=== PATIENT | female | born 1940 | race Caucasian/White ===

== ENCOUNTER 2021-08-17 15:23 | Emergency (ER) | payer MEDICARE, OTHER, SELFPAY ==
--- NOTE | ~2021-08-17 | CT_ITS ---
EXAMINATION: CT HEAD WITHOUT CONTRAST CLINICAL INFORMATION: Dizziness, headache. COMPARISON: None. TECHNIQUE: Contiguous axial imaging was performed from the skull base to vertex without intravenous administration of contrast. This CT examination was performed using dose optimization techniques as appropriate, variously including the following: *Automated exposure control *Adjustment of mA and/or kV according to patient size (this includes techniques or standardized protocols for targeted exams where dose is matched to indication/reason for exam; i.e. extremities or head) *Use of iterative reconstruction technique DLP: 722 mGy-cm FINDINGS: There is no evidence of acute intracranial hemorrhage or edematous territorial infarction. A few foci of hypoattenuation in the periventricular and deep white matter are consistent with mild microangiopathy. James-white matter differentiation is preserved. Proportional prominence of the ventricles and sulcal spaces. No evidence for obstructive hydrocephalus. No abnormal mass effect or midline shift. No extra-axial fluid collections. No acute soft tissue or osseous abnormalities. The mastoid air cells and paranasal sinuses are clear. CT/CT head/brain wo con IMPRESSION: No evidence of acute intracranial hemorrhage or edematous territorial infarction. 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
[2021-08-17 15:38] VITALS: BP 144/90; BP 176/88; PULSE 90; PULSE 93; RESP 18; TEMP 36.8; O2SAT 94; O2SAT 97; BMI 33.0
--- NOTE | 2021-08-17 15:45 | ED_ITS ---
HPI - Dizziness General Chief Complaint: Dizziness Stated Complaint: dizzy/vomiting Time Seen by Provider: 08/17/21 15:45 Source: patient and EMS Mode of arrival: EMS Limitations: no limitations History of Present Illness HPI Narrative: This is an 80-year-old female past medical history significant for arthritis, hypertension and vertigo presenting to the emergency department with complaints of nausea, vomiting and dizziness since this morning. Patient me that she has a remote history of vertigo and seems to feel the same. She tells me that she feels as though the room is spinning around her. She denies headaches, vision changes, chest pain, shortness of breath, chest pain, shortness of breath, abdominal pain. Denies head trauma. MD elicited complaint: dizziness Pertinent past history: other (vertigo) Onset (ago): hour(s) (6) Timing: sudden onset Severity: similar to previous episodes Description: sense of movement and room spinning History of similar symptoms: Yes Exacerbating factors: nothing Relieving factors: nothing Associated symptoms: nausea and vomiting Related Data Previous Rx's Medication Instructions Recorded cefuroxime axetil 250 mg tablet 250 mg PO BID 7 Days #14 tab 08/17/21 meclizine 25 mg tablet 25 mg PO DAILY PRN #14 tab 08/17/21 ondansetron 4 mg disintegrating 4 mg PO Q8-12H PRN #10 tab 08/17/21 tablet Allergies Allergy/AdvReac Type Severity Reaction Status Date / Time Unable to Assess Allergy Unverified 08/17/21 15:54 Review of Systems Review of Systems: Constitutional : No Weight loss, No Fever, No Chills, No Fatigue, No Malaise ENT/Mouth : No sore throat, No Rhinorrhea Eyes: No Eye Pain, No Swelling, No Redness Cardiovascular : No Chest Pain, No SOB, No Dyspnea on Exertion, No Orthopnea, No Edema, No Palpitations Respiratory : No Cough, No Sputum, No Wheezing Gastrointestinal : + Nausea, + Vomiting, No Diarrhea, No Constipation, No abdominal Pain, No Hematochezia, No Melena Genitourinary : No Dysuria, No Urinary Frequency, No Hematuria, Musculoskeletal : No joint pain, No Myalgias, No Joint Swelling Skin : No Skin Lesions, No rash Neuro : No Weakness, No Numbness, + Dizziness, No Headache Psych : No Anxiety/Panic, No Depression All other systems reviewed and are negative Yes all other systems are reviewed and are negative [facility] Past Medical History Attestation statement: The following information was validated with the patient. Source: old records reviewed and nursing notes reviewed Medical History (Updated 08/17/21 @ 19:06 by CHRISTEN Pryor) Arthritis HTN (hypertension) Pinched nerve Thoracic aneurysm without mention of rupture Vertigo Social History Social History Advance Directives: No Advance Directives Information Provided: No Physical Exam Vital Signs: Vital Signs: Last Vital Signs Temp 98.7 F 08/17/21 18:27 Pulse 92 08/17/21 18:27 Resp 16 08/17/21 18:27 BP 152/77 H 08/17/21 18:27 Pulse Ox 97 08/17/21 18:27 BMI result Body Mass Index 33.0 Vital signs stable. Appearance: Alert.? Oriented X3.? No acute distress.? Head: Normocephalic, atraumatic, no step-offs or deformities Eyes: Pupils equal, round and reactive to light.? ENT: Pharynx normal.? Neck: Normal inspection.? Neck supple.? CVS: Normal heart rate and rhythm.? Pulses normal.? Respiratory: No respiratory distress.? Breath sounds normal.? Abdomen: Soft and nontender.? Skin: Skin warm and dry.? Normal skin color.? Normal skin turgor.? Extremities: No lower extremity edema.? No calf ttp. 5/5 strength to bilateral upper and lower extremities Back: No midline tenderness, no C-spine tenderness, full range of motion, no CVA tenderness bilaterally Neuro: Oriented X 3.? No motor deficit.? No sensory deficit. Normal [id number], rivs-xq-udnl, hand home improvement installer. Normal tandem gait Course Reevaluation(s) Reevaluation #1: Patient's CBC within normal limits. Chemistry significant for an elevated potassium of 5.5, will give Lokelma 10gm to lower potassium. I did the Billie maneuver on this patient, and noted horizontal nystagmus. Patient reports improvement after maneuver. Time: 16:53 Reevaluation #2: Patient reports significant improvement after fluids, and Billie maneuver. No longer nauseaous. Patient ambulated to the bathroom with 1 assist, she reports she is no longer dizzy with ambulation, she has a steady gait. At home she ambulates with a walker. No vision changes, dizziness or nausea at this time. Urine pending. History and physical exam not consistent with posterior stroke. Time: 18:36 Reevaluation #3: Patient noted to have urinary tract infection. Will treat with Ceftin 250 mg p.o. b.i.d. for 7 days. This time I feel comfortable discharge home as this is likely vertigo. Patient reports significant improvement. She will be going home with her daughter franki. I have advised her to return with new or worsening symptoms. I have outlined these on her discharge. Time: 19:06 MDM - Dizziness MDM Narrative Medical decision making narrative: 1551 80 yo f pmhx htn, arthritis, vertigo presents to ED w/ n/v and dizziness described as vertigo since this am. Physical examination benign. Normal esdvty-ek-umse, vsip-qa-huya, normal tandem gait, neuro exam nonfocal. Unlikely that this is cerebellar infarcts or stroke. Plan at this time is to administer meclizine, fluids obtain basic lab work, EKG and orthostatic vital signs. Medical Records Attestation: I reviewed the patient's medical records. Lab Data Attestation: I reviewed the patient's lab results. Result diagrams: 08/17/21 15:48 08/17/21 15:48 Labs: Lab Results 08/17/21 08/17/21 08/17/21 Range/Units 15:48 15:48 18:39 WBC 8.0 (4.8-10.8) X10*3/uL RBC 4.26 (4.20-5.50) X10*6/uL Hgb 12.1 (12.0-16.0) g/dl Hct 36.1 L (37.0-47.0) % MCV 84.7 (80.0-98.0) fL MCH 28.4 (27.0-33.0) pg MCHC 33.5 (31.0-35.0) g/dl RDW 13.4 (11.0-16.0) % Plt Count 316 (160-400) X10*3/uL MPV 9.4 (9.4-12.3) fL Absolute Nucleated RBC 0.000 (0.0-0.012) X10*3/uL Nucleated RBC % (auto) 0.0 (0.0-0.2) /100WBC Sodium 138 (135-145) mmol/L Potassium 5.5 H (3.3-5.1) mmol/L Chloride 105 (96-108) mmol/L Carbon Dioxide 23 (22-29) mmol/L Anion Gap 16 (12-20) BUN 17 H (9-16) mg/dL Creatinine 0.70 (0.5-1.4) mg/dL Estim Creat Clear Calc 71.1 Estimated GFR > 60 Random Glucose 121 H (60-115) mg/dL Calcium 10.3 H (8.4-10.2) mg/dL Urine Color YELLOW Urine Appearance HAZY Urine pH 5.5 (5.0-8.0) Ur Specific [place] >= 1.030 H (1.005-1.025) Urine Protein TRACE (NEG-TRACE) MG/DL Urine Glucose (UA) NEG (NEG) MG/DL Urine Ketones NEG (NEG) MG/DL Urine Blood TRACE (NEG) Urine Nitrite POS H (NEG) Ur Leukocyte Esterase 1+ H (NEG) Urine RBC 1-4 (0) /HPF Urine WBC 76-150 H (0-4) /HPF Ur Squamous Epith Cells 1+ /LPF Urine Bacteria 3+ /LPF Imaging Data CT scan - head: Attestation: I personally reviewed and interpreted this imaging study as follows: Radiologist's impression: CT/CT head/brain wo con IMPRESSION: No evidence of acute intracranial hemorrhage or edematous territorial infarction. 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 ? ECG Data Attestation: I personally reviewed and interpreted this ECG as follows: ECG interpretation date: 08/17/21 ECG interpretation time: 17:23 Prior ECG tracings: not available for review Interpretation: Ventricular rate of 85, ME normal, QRS normal, QT/QTC normal. EKG shows normal sinus rhythm. No ST elevations or inversions concerning for ischemia. No previous to compare with. Critical Care Time Critical Care Time Critical Care Time: No Discharge Plan Discharge Clinical Impression: Benign paroxysmal positional vertigo, Nausea & vomiting, Urinary tract infection Patient Disposition: Home, Self-Care Instructions: Benign Paroxysmal Positional Vertigo (ED) Additional Instructions: Today your potassium was noted to be 5.5 I gave you 10 gm of Lokelma a medication to help lower potassium. Please follow up with your PCP in 2-3 days to recheck potassium. I gave you a handout on exercises to help with vertigo. You can try these at if you have assistance. Please change positions slowly as rapid movements can worsen vertigo. I will send you home with Zofran, this medication will dissolve underneath her tongue please take this as needed for nausea and vomiting every 8-12 hours. I have also sent you home with meclizine a medicine that helps with dizziness, only take if dizzy. You received both of these medications in the emergency department today. Take your medications as prescribed. If you were prescribed antibiotics today, it is important that you take your medication to their entirety, do not skip any doses, do not finish them early. Follow-up with your primary care provider this week. Return to the emergency department with new or worsening symptoms. Such as nausea, vomiting, chest pain, shortness of breath, dizziness, headache, vision changes, weakness or lethargy. In case of emergency call 911 Prescriptions: New ondansetron 4 mg tablet,disintegrating 4 mg PO Q8-12H PRN (Reason: nausea and vomiting) Qty: 10 RF: 0 meclizine 25 mg tablet 25 mg PO DAILY PRN (Reason: dizziness) Qty: 14 RF: 0 cefuroxime axetil 250 mg tablet 250 mg PO BID 7 Days Qty: 14 RF: 0 Referrals: Physician,Unknown J [Primary Care Provider] - 2 days (Please have your primary care provider recheck your potassium level)
[2021-08-17 15:50] VITALS: BP 176/88; PULSE 96; RESP 16; TEMP 36.6; O2SAT 93
[2021-08-17 15:53] LABS: Hematocrit 36.1 % (37.0-47.0); Hemoglobin 12.1 g/dl (12.0-16.0); Mean Corpuscular HGB Conc 33.5 g/dl (31.0-35.0); Mean Corpuscular Hemoglobin 28.4 pg (27.0-33.0); Mean Corpuscular Volume 84.7 fL (80.0-98.0); Mean Platelet Volume 9.4 fL (9.4-12.3); Platelet Count 316 X10*3/uL (160-400); Red Blood Count 4.26 X10*6/uL (4.20-5.50); Red Cell Distribution Width 13.4 % (11.0-16.0)
[2021-08-17] MEDS: ondansetron HCL 4 MG/2 ML VIAL IVPUSH (15:56)
[2021-08-17 16:08] LABS: Anion Gap 16 (12-20); Blood Urea Nitrogen 17 mg/dL (9-16); Calcium 10.3 mg/dL (8.4-10.2); Carbon Dioxide 23 mmol/L (22-29); Chloride 105 mmol/L (96-108); Creatinine Clr Calc Pharmacy 71.1; Estimated Glomerular Filt Rate > 60; Glucose Random 121 mg/dL (60-115); Potassium 5.5 mmol/L (3.3-5.1); Sodium 138 mmol/L (135-145)
[2021-08-17] MEDS: Meclizine HCl 25 MG TABLET PO (16:30)
--- NOTE | 2021-08-17 16:35 | ECG_ITS ---
Test Reason : dizzy Blood Pressure : / mmHG Vent. Rate : 085 BPM Atrial Rate : 085 BPM P-R Int : 156 ms QRS Dur : 080 ms QT Int : 340 ms P-R-T Axes : 068 -25 -14 degrees QTc Int : 404 ms Normal sinus rhythm ST & T wave abnormality, consider anterior ischemia Abnormal ECG No previous ECGs available Referred By: Sophia Lange Electronically Signed By:BENI DURAN MD
[2021-08-17] MEDS: Sodium Zirconium Cyclosilicate 10 GM POWD.PACK PO (17:25)
[2021-08-17 18:27] VITALS: BP 152/77; PULSE 92; RESP 16; TEMP 37.1; O2SAT 97
[2021-08-17 18:49] LABS: Appearance Urine HAZY; Color Urine YELLOW; Glucose Urine UA NEG (NEG); Leukocyte Esterase Urine 1+ (NEG); Nitrite Urine POS (NEG); PH 5.5 (5.0-8.0); Specific Gravity - Urine >= 1.030 (1.005-1.025); UACC Culture Trigger YES; Urine Blood TRACE (NEG); Urine Ketones NEG (NEG); Urine Protein TRACE MG/DL (NEG-TRACE)
[2021-08-17 18:56] LABS: Bacteria Urine 3+ /LPF; Squamous Epithelial Cell Urine 1+ /LPF
[2021-08-17 18:57] LABS: UACC CULT YES
[2021-08-17 19:26] LABS: COVID-19 Test Negative (Negative); IDNOW Serial# 9DD0AD1C
--- NOTE | 2021-08-17 19:41 | PC.NURSE ---
Discharged at this time. Prior to DC we reviewed proper uses and indications for Zofran, meclizine and Cefizime.She verbalized an understanding. I assisted the pt to get dressed and assisted her into a wheelchair to her daughter who was in waiting room to transport her home.
== END 2021-08-17 19:42 | disposition home or self-care (01) ==
PROVIDERS: Physician Assistant; Emergency Provider Emergency Medicine
DX: H81.13 Benign paroxysmal vertigo, bilateral (principal); N39.0 Urinary tract infection, site not specified; Z20.822 Contact with and (suspected) exposure to COVID-19; Z79.899 Other long term (current) drug therapy
CPT/HCPCS: 36415; 70450; 80048; 81001; 85027; 87086; 87088; 87186; 87635; 93005; 96374; 99283; 99284; J2405

== ENCOUNTER → 2023-01-14 10:57 | Outpatient (BNVA) | payer MEDICARE, OTHER, SELFPAY | PROVIDERS: PCP Internal Medicine; Visit Provider Orthopaedic Surgery | DX: M25.562 Pain in left knee (principal); G58.9 Mononeuropathy, unspecified; Z96.652 Presence of left artificial knee joint | CPT/HCPCS: 99212 ==

== ENCOUNTER 2023-04-15 11:40 | Outpatient (REF) | payer MEDICARE, OTHER, SELFPAY ==
--- NOTE | ~2023-04-15 | XR_ITS ---
EXAMINATION: XR KNEE, LEFT CLINICAL INFORMATION: Left knee pain. COMPARISON: None available. TECHNIQUE: AP, lateral, and sunrise views of the left knee. FINDINGS: Total left knee arthroplasty. No hardware fracture. No perihardware lucency to suggest loosening or infection. No dislocation. No osseous fracture. No concerning lytic or blastic osseous lesion. Trace joint effusion. Atherosclerotic calcifications. XR/XR knee LT 3V IMPRESSION: 1. Total left knee arthroplasty without evidence of complication. 2. Trace joint effusion.
== END 2023-04-15 11:41 | disposition home or self-care (01) ==
LOC: HO.HOSX 11:40
PROVIDERS: Visit Provider Orthopaedic Surgery
DX: M25.562 Pain in left knee (principal); Z96.652 Presence of left artificial knee joint; Z79.899 Other long term (current) drug therapy
CPT/HCPCS: 73562; 99212

== ENCOUNTER 2023-04-15 13:17 | Outpatient (AMB) | payer MEDICARE, OTHER, SELFPAY ==
--- NOTE | 2023-04-15 13:37 | MHC.OFFVIS ---
Intake Intake Visit Reasons: OV-S/P left knee replacement-F/U Intake Note: Pt presents to the office today for s/p left knee replacement follow up. Pt states her knee is doing well. Pt states the pain in her knee is almost gone. Pt states she does have swelling in her left leg most of the time. Pt states when she elevates her legs the swelling tends to go down. The patient does take gabapentin and Tylenol as needed for her discomfort. She has taken Celebrex but states that she may have had a reaction to it. Accompanied by: Daughter Allergies nitrofurantoin Allergy (Mild, Verified 04/15/23 13:37) itchy sulfamethoxazole [From Bactrim] Allergy (Mild, Verified 04/15/23 13:37) itchy tramadol [From Ultram] Allergy (Mild, Verified 04/15/23 13:37) itchy trimethoprim [From Bactrim] Allergy (Mild, Verified 04/15/23 13:37) itchy Medication List - Last Reconciled 04/15/23 by Apollo Lucio MD atenolol 100 mg PO QAM bimatoprost 0.01% (Lumigan) 1 drp ophthalmic (eye) QPM brimonidine-timolol 0.2-0.5 % (Combigan) 1 drp ophthalmic (eye) BID gabapentin 300 mg PO DAILY losartan 50 mg PO DAILY ondansetron 4 mg PO Q8-12H PRN PFSH Medical History Thoracic aneurysm without mention of rupture Pinched nerve Arthritis HTN (hypertension) Vertigo Surgical History (Updated 04/15/23 @ 13:43 by Tonya Velasco MA) 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 Family History (Updated 04/15/23 @ 13:42 by Tonya Velasco MA) Mother Diabetes Hypertension Father Leukemia Son Prostate cancer Social History (Updated 04/15/23 @ 13:41 by Tonya Velasco MA) Household Members: None Housing: Condominium Alcohol intake: never Patient Tobacco Use Status: Never used Tobacco Current occupational status: retired Physical Exam Const Other: Well-nourished well-developed very friendly female awake alert and oriented x3 in no acute distress Extrem Other: Bilateral lower extremity examination shows good capillary refill, no skin lesions noted, normal sensation light touch Left knee examination shows that the surgical incision is well healed with no erythema, full extension and flexion to 120 degrees, her patella tracks well Results Reviewed Results Reviewed: X-rays of the patient's left knee taken today show a total knee arthroplasty in good position with no signs of loosening, no acute bony abnormalities Assessment & Plan Assessment & Plan (1) Left knee pain: Code(s): M25.562 - Pain in left knee Plan Ms. Machado continues to do well after undergoing left total knee replacement surgery. She will continue with her home exercise program. She does know to take antibiotics before any dental work. She does have intermittent discomfort and swelling. I did give her a prescription for diclofenac tablets. She will check with her eye doctor prior to starting the medicine to make sure that it is not contraindicated. She will contact me prior to her annual follow-up appointment should any questions or concerns arise. Feel free to call me at any time should questions regarding her orthopedic management arise. I spent 22 minutes in reviewing the patient's records and imaging studies, seeing the patient and documenting in the medical record. Orders: Orders XR knee LT 3V Today M25.562 - Pain in left knee Medications: New diclofenac sodium ER 100 mg PO DAILY PRN 30 tabs 2RF pain Coding Level of Care Code Est Pt Level 2 (70457) Diagnoses Left knee pain M25.562
== END 2023-04-15 14:10 | disposition home or self-care (01) ==
PROVIDERS: PCP Internal Medicine; Visit Provider Orthopaedic Surgery
DX: M25.562 Pain in left knee (principal)
CPT/HCPCS: 99212

== ENCOUNTER 2025-02-14 09:47 | Outpatient (AMB) | payer MEDICARE, OTHER, SELFPAY ==
--- OUTSIDE RECORDS SUMMARY | 2025-02-13 07:59 | XMS_ITS | Encounter Summary ---
Author Organization [facility] [place] [address] Care Team Providers Care Monorail Helper Name Role Phone Arian Waldron MD Primary Care Provider [phone] Encounter Details Date Type Department Care Team (Latest Contact Info) Description 02/13/2025 7:59 AM EDT - 02/13/2025 11:59 PM EDT Hospital Encounter [facility] Ortho Xray [address] [place] [phone] Arrived Discharge Disposition: Home or Self Care [...] Description 03/30/2025 2:00 PM EDT Office Visit [facility] Cardiology [address] [place] [address] Ramon Dixon MD [address] [place] [address] [address] [place] [address] documented as of this encounter Procedures Procedure [...] documented as of this encounter Care Teams Monorail Helper Relationship Specialty Start Date End Date Arian Waldron MD [address] [place] [address] PCP - General Transmission System Operator 02/06/20 documented as of this encounter
--- NOTE | 2025-02-14 09:59 | A.OFFVIS_ITS ---
Vital Signs 02/14/25 10:05 Height 5 ft 3 in Weight 195 lb BMI 34.5 Intake Visit Reasons: New prob RT knee pain Intake Note: Marie is an 84 year old female who presents today with complaints of progressively worsening right knee pain. The patient did undergo left total knee replacement surgery in May of 2022. She reports minimal discomfort in her left knee. She describes her right knee pain as sharp and severe in nature. The patient has difficulty walking because of her pain and symptoms of instability. She is not able to have cortisone injections because of her glaucoma. She wishes to hold off on right total knee replacement surgery for now. She has failed the last 3 months of conservative treatment which has included Tylenol, anti-inflammatory medicines and physical therapy exercises. Allergies nitrofurantoin Allergy (Mild, Verified 02/14/25 10:04) itchy sulfamethoxazole (From Bactrim) Allergy (Mild, Verified 02/14/25 10:04) itchy tramadol (From Ultram) Allergy (Mild, Verified 02/14/25 10:04) itchy trimethoprim (From Bactrim) Allergy (Mild, Verified 02/14/25 10:04) itchy Medication List - Last Reviewed 02/14/25 by Angi Pearce atenolol 100 mg PO QAM bimatoprost 0.01% (Lumigan) 1 drp ophthalmic (eye) QPM brimonidine-timolol 0.2-0.5 % (Combigan) 1 drp ophthalmic (eye) BID diclofenac sodium ER 100 mg PO DAILY PRN dorzolamide 2% 1 drp ophthalmic (eye) TID gabapentin 400 mg PO DAILY lidocaine 4% (Lido Porfirio) 1 patch topical QID PRN lidocaine HCl 4% (Aspercreme (lidocaine HCl)) 1 appl topical QID PRN losartan 50 mg PO DAILY ondansetron 4 mg PO Q8-12H PRN PFSH Medical History (Updated 02/14/25 @ 10:25 by Apollo Lucio MD) Thoracic aneurysm without mention of rupture Pinched nerve Arthritis HTN (hypertension) Vertigo Surgical History (Updated 04/15/23 @ 13:43 by Tonya Velasco CMA) 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 Family History (Updated 04/15/23 @ 13:42 by Tonya Velasco CMA) Mother Diabetes Hypertension Father Leukemia Son Prostate cancer Social History (Updated 04/15/23 @ 13:41 by Tonya Velasco [facility]) Household Members: None Housing: Condominium Alcohol intake: never Patient Tobacco Use Status: Never used Tobacco Current occupational status: retired Physical Exam Vital Signs: BMI result Body Mass Index 34.5 Const Other: Well-nourished well-developed very friendly female awake alert and oriented x3 in no acute distress Extrem Other: Right knee examination shows a moderate effusion, palpable crepitus with range of motion, pain with range of motion, range of motion from -3 degrees to 100 degrees, her patella tracks well Results Reviewed Results Reviewed: X-rays of the patient's right knee which she brings with her on a disc show severe joint space narrowing, subchondral sclerosis, no acute bony abnormalities Assessment & Plan Assessment & Plan (1) Osteoarthritis of right knee: Code(s): M17.11 - Unilateral primary osteoarthritis, right knee Category: Medical Plan Ms. Machado presents with right knee pain due to osteoarthritis. I had a lengthy discussion with the patient regarding the treatment options. She wishes to hold off on surgery if at all possible. I agree with this plan. She is not able to have cortisone injections because of her glaucoma. Thus, I will see if the patient's insurance company will cover a viscosupplementation injection such as Durolane. I will see her back once the injection is available. Feel free to call me at any time should questions regarding her orthopedic management arise. I spent 22 minutes in reviewing the patient's records and imaging studies, seeing the patient and documenting in the medical record. Orders: Orders XR knee RT 3V Today M25.561 - Pain in right knee Coding Level of Care Code Est Pt Level 3 (48373) Complex EM visit Add On G2211 Diagnoses Osteoarthritis of right knee M17.11
[2025-02-14 10:05] VITALS: BMI 34.5
--- OUTSIDE RECORDS SUMMARY | 2025-02-14 10:24 | XMS_ITS | Data Portability ---
Author Organization [facility] Pain Managem ent, PAIN OFFICE Address [address] [facility] [address] [place] [address] Care Team Providers Care Biology Intern Name Role Phone ZENOBIA RAMSAY Primary Care Provider [phone] Assessment Encounter Date Assessment Date Assessment LastModified by Organization Details LastModified Time 03/12/2020 03/12/2020 Marie Machado is a 79 year old woman with low back pain .MRI Lumbar Spine shows severe changes of multilevel lumbar spondylosis, resulting in high-grade spinal canal and foramina narrowing, worst at L2-L3 and L3-L4 levels progressed since the prior exam of 2018. Stable grade 1 degenerative anterolisthesis of L4 on L5, resulting in mild to moderate narrowing of the recesses and foramina similar to the previous exam. 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 Degenerative levoscoliosis and other changes of lumbar spondylosis . She is here for a trial of Lumbar right facet steroid injections under fluoroscopic guidance . The risks and benefits of the procedure were discussed in detail. She wishes to proceed. She will follow up in four weeks . [email or web address] Not available 03/13/2020 09:58:36 04/12/2020 04/12/2020 Marie Machado is a 79 year old woman with low back pain .MRI Lumbar Spine shows severe changes of multilevel lumbar spondylosis, resulting in high-grade spinal canal and foramina narrowing, worst at L2-L3 and L3-L4 levels progressed since the prior exam of 2018. Stable grade 1 degenerative anterolisthesis of L4 on L5, resulting in mild to moderate narrowing of the recesses and foramina similar to the previous exam. 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 Degenerative levoscoliosis and other changes of lumbar spondylosis . I recommend a neurosurgical consultation with Dr. Rafael Moss. She is seeing Dr. Murdock and will discuss the same with him and call back. [email or web address] Not available 04/12/2020 11:10:54 08/06/2020 08/06/2020 Marie Machado is a 79 year old woman with low back pain .MRI Lumbar Spine shows severe changes of multilevel lumbar spondylosis, resulting in high-grade spinal canal and foramina narrowing, worst at L2-L3 and L3-L4 levels progressed since the prior exam of 2019. Stable grade 1 degenerative anterolisthesis of L4 on L5, resulting in mild to moderate narrowing of the recesses and foramina similar to the previous exam. 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 Degenerative levoscoliosis and other changes of lumbar spondylosis . She is having right hip pain. She is here for a right sacroiliac joint injection under fluoroscopic guidance. The risks and benefits of the procedure were discussed in detail. She wishes to proceed. She will have a follow up telehealth visit in six weeks. [email or web address] Not available 08/06/2020 16:14:45 09/06/2020 09/06/2020 Marie Machado is a 79 year old woman with low back pain .MRI Lumbar Spine shows severe changes of multilevel lumbar spondylosis, resulting in high-grade spinal canal and foramina narrowing, worst at L2-L3 and L3-L4 levels progressed since the prior exam of 2018. Stable grade 1 degenerative anterolisthesis of L4 on L5, resulting in mild to moderate narrowing of the recesses and foramina similar to the previous exam. 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 Degenerative levoscoliosis and other changes of lumbar spondylosis . She is having right hip pain. This is a follow up after a right sacroiliac joint injection under fluoroscopic guidance. She reports 60% pain benefit which is ongoing. She will follow up in three months for a repeat injection [email or web address] Not available 09/06/2020 10:27:30 08/07/2021 08/07/2021 Marie Machado is a 77 year old woman with low back pain radiating into the right lower extremity. On exam ,she has pain on flexion. Straight leg raising test is positive on the right.She is S/P lumbar spine decompression L2-3 and L3-4 levels and has persistent pain. I recommend a MRI Lumbar spine with and without contrast. She may benefit from a trial of Lumbar transforaminal epidural steroid injection under fluoroscopic guidance [email or web address] Not available 08/07/2021 15:58:30 Plan of Treatment Reminders Order Date Submit Date Provider Last Modified By Organization Details Last Modified Time Details Appointments None recorded. Lab None recorded. Referral None recorded. Procedures None recorded. Surgeries None recorded. Imaging MRI, lumbar spine, w/wo contrast - Patient has appointment on 08/15/21 at 3:00 PM 2021 022 ED[facility] [place], [address], [address], [place], [address], 13:49:16 Medication Orders None recorded. Patient TargetsNo targets recorded. Patient Instructions Encounter Date Encounter Id Patient Instructions Last Modified By Organization Details Last Modified Time 03/12/2020 [id number] She was advised against bed rest lasting longer than four days and to continue activities as tolerated. [email or web address] Not available 03/13/2020 09:58:44 09/06/2020 [id number] Telehealth visit: The patient was located at home for this telephone electronic visit and gave consent for this visit to be conducted via telehealth. 15 minutes was spent on this call and greater than 50% of the visit was spent on counseling and coordination of care. [email or web address] Not available 09/06/2020 10:27:41 08/07/2021 [id number] She was advised against bed rest lasting longer than four days and to continue activities as tolerated. [email or web address] Not available 08/07/2021 15:56:16 Reason for Referral None Reported. Results Created Date Observation Date Name Description Value Unit Range Abnormal Flag Note LastModifiedBy Organization Detail LastModifiedTime 08/16/19 22 08/15/2021 MRI, lumba r spine , w/wo contr ast No observ ation record ed. [email or web address] [facility] [place] [address], [place], [address], 08/18/2021 16:02:34 Result Notes None recorded. Problems Name Problem SNOMED Code Status Onset Date Resolution Date Notes Provider Name and Address Organization Details Recorded Time Lumbosacral radiculopathy 6474567 Active Sudarshan kothari MD [address] , [address], [facility] [place], [address], [place] [facility] 09:44:40 Degeneration of lumbar intervertebral disc 69057411 Active Sudarshan kothari MD [address] , [address], [facility] [place], [address], [place] [facility] 09:44:50 Lumbosacral spondylosis without myelopathy 30063603 Active Sudarshan kothari MD [address] , [address], [facility] [place], [address], [place] [facility] 09:45:04 Spinal stenosis of lumbar region 58075651 Active Sudarshan kothari MD [address] , [address], [facility] [place], [address], [place] [facility] 09:45:16 Problem Notes None recorded. Procedures Surgical History Date Name Laterality Status Provider Name and Address Organization Details Recorded Time 08/06/19 21 Sacroiliac Joint Steroid Injections, using Fluoroscopy completed Sudarshan Allen MD [address] , [address], [place], [address], [place] [facility] 08/06/2020 16:12:56 03/12/20 20 Fluoroscopic Guided Lumbar Facet Steroid Injections of levels completed Sudarshan Allen MD [address] , [address], [place], [address], [place] [facility] 03/12/2020 16:28:16 12/12/19 20 Lumbar Epidural steroid injection under fluoroscopic guidance completed Sudarshan Allen MD [address] , [address], [place], [address], [place] [facility] 12/14/2019 09:53:51 09/13/19 20 Lumbar Epidural steroid injection under fluoroscopic guidance completed Sudarshan Allen MD [address] , [address], [facility] [place], [address], [place] [facility] 09/15/2019 08:37:13 08/10/19 20 Intra-articular shoulder steroid injection under ultrasound guidance completed Sudarshan Allen MD [address] , [address], [place], [address], [place] [facility] 08/11/2019 09:57:26 06/27/20 19 Lumbar Transforaminal epidural steroid injection under fluroscopic guidance completed Sudarshan Allen MD [address] , [address], [place], [address], [place] [facility] 06/29/2019 09:11:07 02/09/20 19 Lumbar Epidural steroid injection under fluoroscopic guidance completed Sudarshan Allen MD [address] , [address], [place], [address], [place] [facility] 02/09/2019 14:22:17 12/21/19 19 Lumbar Epidural steroid injection under fluoroscopic guidance completed Sudarshan Allen MD [address] , [address], [place], [address], [place] [facility] 12/20/2018 10:48:59 Joint Replacement completed Lenehemias Ayers [place] - [facility] 11/25/2018 10:17:52 Cholecystectomy completed Lenehemias Ayers [place] - [facility] 11/25/2018 10:18:07 Hysterectomy completed Lenehemias Ayers [place] - [facility] 11/25/2018 10:18:25 oophorectomy completed Lenehemias Ayers [place] - [facility] 11/25/2018 10:18:47 Tonsillectomy completed Le Ayers [place] - [facility] 12/01/2018 12:10:17 Imaging Results None recorded. Procedure Notes None recorded. Medical Equipment None Reported. Allergies Allergen ID Allergen Name Allergen Category Reaction Reaction Severity Criticality Documentation Date Start Date Code Code System Note Provider Name and Address Organization Details Recorded Time 90890 Ultram medicatio n Not available Not available Not available 11/25/2018 57370 6 RxNorm Le elizondo [place] - [facility] 9 10:06:40 27964 Bactrim medicatio n itching Not available Not available 02/08/2019 80545 9 RxNorm Le elizondo, [place] - [facility] 9 11:44:44 63241 Non-stero idal anti-infl ammatory agent (product) medicatio n edema Not available Not available 06/27/2019 14781 005 SNOMED Sudarshan kothari MD [address] [place] [address] , [address], [place], [address], [facility] - [facility] 9 11:31:40 95393 nitrofura ntoin medicatio n other severe Not available 08/07/2021 7454 RxNorm Body Itchi ng Bernadine Graham[place] [facility] [place] [place] - [facility] 2 11:39:54 Medications Name Sig Start Date Stop Date Status Note LastModified by Organization Details LastModified Time losartan 50 mg tablet active Not Available Not Available No t Available celecoxib 200 mg capsule TAKE 1 CAPSULE BY MOUTH EVERY DAY 11/25 completed Not Available Not Available Not Available amoxicillin 500 mg capsule 08/07 completed Not Available Not Available Not Available prednisone 10 mg tablet 11/25 completed Not Available Not Available Not Available doxycycline hyclate 100 mg capsule 08/07 completed Not Available Not Available Not Available cefuroxime axetil 250 mg tablet active Not Available Not Available No t Available fosfomycin tromethamin e 3 gram oral packet active Not Available Not Available Not Available atenolol 100 mg tablet Take 1 tablet every day by oral route. active Not Available Not Available No t Available ampicillin 500 mg capsule 08/10 completed Not Available Not Available Not Available ondansetron HCl 4 mg tablet 08/06 completed Not Available Not Available Not Available ciprofloxac in 250 mg tablet TAKE 1 TABLET BY MOUTH EVERY 12 HOURS 01/11 completed Not Available Not Available Not Available trimethopri m 100 mg tablet active Not Available Not Available Not Available sulfamethox azole 800 mg-trimetho prim 160 mg tablet 12/20 completed Not Available Not Available Not Available tetracyclin e 250 mg capsule 03/12 completed Not Available Not Available Not Available methenamine hippurate 1 gram tablet 08/07 completed Not Available Not Available Not Available alprazolam 0.25 mg tablet active prn Not Available Not Available Not Available Tylenol 500 mg tablet Take 2 tablets every 4 hours by oral route. active Not Available Not Available No t Available cephalexin 500 mg capsule 08/07 completed Not Available Not Available Not Available losartan 25 mg tablet 03/12 completed Not Available Not Available Not Available ibuprofen 200 mg tablet as needed 06/12 completed Not Available Not Available Not Available gabapentin 300 mg capsule TAKE 1 CAPSULE BY MOUTH THREE TIMES A DAY active Not Available Not Available No t Available levofloxaci n 500 mg tablet 08/07 completed Not Available Not Available Not Available fluticasone propionate 50 mcg/actuati on nasal spray,suspe nsion active Not Available Not Available Not Available amoxicillin 500 mg-cesiliaassjoshu m clavulanate 125 mg tablet 08/07 completed Not Available Not Available Not Available tobramycin 0.3 %-dexametha sone 0.1 % eye drops,suspe nsion 03/12 completed Not Available Not Available Not Available Vitamin C With Becka Hips 500 mg tablet active Not Available Not Available Not Available Premarin 0.625 mg/gram vaginal cream active Not Available Not Available Not Available nitrofurant oin monohydrate /macrocryst als 100 mg capsule 02/08 completed Not Available Not Available Not Available darifenacin ER 7.5 mg tablet,exte nded release 24 hr active Not Available Not Available Not Available diclofenac 1 % topical gel active Not Available Not Available Not Available AZO D-Mannose 500 mg capsule Take 2 capsules twice a day by oral route as directed. active with food Not Available Not Available Not Available Vitals Date Recorded Body height Heart rate Oxygen saturation Oxygen saturation in Arterial blood by Pulse oximetry Body mass index (BMI) Body weight Systolic And Diastolic Provider Name and Address Organization Details Last Updated DateTime 1 170.18 cm 68 /min 98 % 98 % 32.6 kg/m2 57414.2 1 g 117/59 mm[Hg] Bernadine Ambrocio [place] - [facility] 1 15:35:43 Date Recorded Heart rate Oxygen saturation Oxygen saturation in Arterial blood by Pulse oximetry Systolic And Diastolic Provider Name and Address Organization Details Last Updated DateTime 08/07/2021 64 /min 98 % 98 % 110/49 mm[Hg] Bernadine Ambrocio [place] - [facility] 2 11:48:22 Date Recorded Body height Heart rate Oxygen saturation Oxygen saturation in Arterial blood by Pulse oximetry Systolic And Diastolic Provider Name and Address Organization Details Last Updated DateTime 0 170.18 cm 61 /min 96 % 96 % 142/71 mm[Hg] Bernadine [place] - [facility] 0 13:08:51 Social History Question Answer Notes LastModified by [email or web address] Details LastModified Time Tobacco Smoking Status Former Smoker Quit x 35 years Le Ayers [place] - [facility] 11/25/2018 10:14:07 Which Illicit Or Recreational Drugs Have You Used? 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 Alone martin general Information not available 11/25/2018 Marital Status [email or web address] Informatio n not available 11/25/2018 What Was The Date Of Your Most Recent Tobacco Screening? 01/19/2019 Information not available 02/15/2019 How Many Years Have You Smoked Tobacco? 25 martin general Information not available 11/25/2018 Sex: Unknown Functional Status Question Answer Note LastModified by [email or web address] Details LastModified Time What is your level of alcohol consumption? None martin general Information not available 11/25/2018 Are you currently employed? 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 Family History Relationship Description Onset Age of this Age Resolved Age Notes LastModified by Organization Details LastModified Time Mother Hypertensive disorder [email or web address] Not available 2018 10:13:33 Father Malignant neoplastic disease [email or web address] Not available 2018 10:13:45 Medical History Condition Response Arthritis Y Hypertension Y Gynecological HistoryNo gynecological history recorded. Obstetrics History GPAL:G 0 P 0 0 0 0 Past Encounters Encounter ID Performer Location Encounter Start Date Encounter Closed Date Diagnosis/Indication Diagnosis SNOMED-CT Code Diagnosis ICD10 Code Diagnosis Note [id number] Sudarshan Allen MD PAIN OFFICE [address] [facility] [address] [facility] [place] [address] 11/25/2018 09:41:35 11/25/2018 11:20:57 Lumbosacral radiculopathy 9272537 M54.17 Spinal yuan nosis of lumbar region 05953962 M48.061 Degenerati on of lumbar intervertebral disc 11548073 M51.36 Lumbosacra l spondylosis without myelopathy 17878920 M47.817 [id number] Sudarshan Allen MD PAIN OFFICE [address] [place] [address] 12/20/2018 09:48:49 12/20/2018 13:59:04 Lumbosacral radiculopathy 5878725 M54.17 Spinal yuan nosis of lumbar region 43986388 M48.061 Degenerati on of lumbar intervertebral disc 15840686 M51.36 Lumbosacra l spondylosis without myelopathy 36290819 M47.817 [id number] Sudarshan Allen MD PAIN OFFICE [address] [place] [address] 01/19/2019 11:15:24 01/19/2019 13:50:46 Lumbosacral radiculopathy 0427429 M54.17 Spinal yuan nosis of lumbar region 88610640 M48.061 Degenerati on of lumbar intervertebral disc 92103877 M51.36 Lumbosacra l spondylosis without myelopathy 45987328 M47.817 [id number] Sudarshan Allen MD PAIN OFFICE [address] [place] [address] 02/08/2019 11:13:51 02/09/2019 14:25:36 Lumbosacral radiculopathy 8990463 M54.17 Spinal yuan nosis of lumbar region 47438041 M48.061 Degenerati on of lumbar intervertebral disc 34368126 M51.36 Lumbosacra l spondylosis without myelopathy 40690551 M47.817 [id number] Sudarshan Allen MD PAIN OFFICE [address] [place] [address] 06/27/2019 11:13:24 06/29/2019 09:15:05 Lumbosacral radiculopathy 9013574 M54.17 Spinal yuan nosis of lumbar region 18594489 M48.061 Degenerati on of lumbar intervertebral disc 63527047 M51.36 Lumbosacra l spondylosis without myelopathy 62615155 M47.817 [id number] Sudarshan Allen MD [facility] PAIN OFFICE [address] [facility] [place] [address] 08/10/2019 09:09:46 08/11/2019 10:01:12 Osteoarthritis of joint of right shoulder region 9023879168 46215 M19.011 [id number] Sudarshan Allen MD [facility] PAIN OFFICE [address] [facility] [place] [address] 09/13/2019 15:04:18 09/14/2019 16:07:55 Lumbosacral radiculopathy 0544023 M54.17 Spinal yuan nosis of lumbar region 90230727 M48.061 Degenerati on of lumbar intervertebral disc 42068437 M51.36 Lumbosacra l spondylosis without myelopathy 36924778 M47.817 [id number] Sudarshan Allen MD PAIN OFFICE [address] [facility] [place] [address] 12/12/2019 12:53:38 12/14/2019 10:17:03 Lumbosacral radiculopathy 2959915 M54.17 Spinal yuan nosis of lumbar region 00547730 M48.061 Degenerati on of lumbar intervertebral disc 27173917 M51.36 Lumbosacra l spondylosis without myelopathy 56811011 M47.817 [id number] Sudarshan Allen MD [facility] PAIN OFFICE [address] [facility] [place] [address] 01/12/2020 10:16:11 01/15/2020 15:58:28 Lumbosacral spondylosis without myelopathy 96054333 M47.817 Lumbosacra l radiculopathy 1284630 M54.17 Degenerati on of lumbar intervertebral disc 08553230 M51.36 Spinal yuan nosis of lumbar region 60077442 M48.061 [id number] Sudarshan Allen MD PAIN OFFICE [address] [facility] [place] [address] 03/12/2020 12:53:30 03/13/2020 10:05:28 Lumbosacral spondylosis without myelopathy 02154731 M47.817 Lumbosacra l radiculopathy 5992661 M54.17 Degenerati on of lumbar intervertebral disc 41112186 M51.36 Spinal yuan nosis of lumbar region 98543534 M48.061 [id number] Sudarshan Allen MD PAIN OFFICE [address] [place] [address] 04/12/2020 10:58:37 04/12/2020 13:08:46 Lumbosacral spondylosis without myelopathy 65411843 M47.817 Lumbosacra l radiculopathy 8953497 M54.17 Degenerati on of lumbar intervertebral disc 14854564 M51.36 Spinal yuan nosis of lumbar region 35899128 M48.061 [id number] Sudarshan Allen MD PAIN OFFICE [address] [place] [address] 08/06/2020 15:25:45 08/06/2020 16:17:10 Lumbosacral spondylosis without myelopathy 85289195 M47.817 Lumbosacra l radiculopathy 6340577 M54.17 Degenerati on of lumbar intervertebral disc 66622121 M51.36 Spinal yuan nosis of lumbar region 63067319 M48.061 Inflammati on of sacroiliac joint 41917642 M46.1 [id number] Sudarshan Allen MD PAIN OFFICE [address] [place] [address] 09/06/2020 10:09:44 09/06/2020 10:28:10 Lumbosacral spondylosis without myelopathy 86380934 M47.817 Lumbosacra l radiculopathy 5247459 M54.17 Degenerati on of lumbar intervertebral disc 11676992 M51.36 Spinal yuan nosis of lumbar region 02262908 M48.061 Inflammati on of sacroiliac joint 02831688 M46.1 [id number] Sudarshan Allen MD PAIN OFFICE [address] [place] [address] 08/07/2021 11:27:03 08/07/2021 16:06:25 Lumbosacral radiculopathy 9237595 M54.17 Spinal yuan nosis of lumbar region 48897243 M48.061 Degenerati on of lumbar intervertebral disc 30259548 M51.36 Lumbosacra l spondylosis without myelopathy 85647010 M47.817 Health Concerns Section Related Observation LastModified by Organization Detai ls LastModified Time None Recorded Concern Status LastModified by Organization Details LastModified Time None Recorded Advance Directives Directive None Recorded Payers Insurance Date Sequence Insurance Name Policy Number Policy Díaz Covered Member ID Díaz Member ID Guarantor Name 08/04/2021 2 [id number] Marie Machado [id number] Marie Machado 08/04/2021 MEDICARE [place]: [employer] Marie Harper Jeannette [id number] Marie Machado 08/04/2021 1 MEDICARE B-[place]: NGS Marie Harper Jeannette [id number] Marie Machado 02/15/2020 1 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 She is S/P Right lumbar facet joint injection under fluoroscopic guidance . She reports no pain benefit. She had a recent MRI which shows Severe changes of multilevel lumbar spondylosis, resulting in high-grade spinal canal and foramina narrowing, worst at L2-L3 and L3-L4 levels progressed since the prior exam of 2019. Stable grade 1 degenerative anterolisthesis of L4 on L5, resulting in mild to moderate narrowing of the recesses and foramina similar to the previous exam. 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 Degenerative levoscoliosis and other changes of lumbar spondylosis She continues to have right sided low back pain which radiates into her buttock region. She has no pain in her legs. She has no history of bladder or bowel incontinence. Sudarshan Allen MD [address] [facility] , [address], [place], [address], [place] [facility] 04/15/2020 08:17:03 08/06/2020 text/html She is here for a right sacroiliac joint injection under fluoroscopic guidance Sudarshan Allen MD [address] [facility] , [address], [place], [address], [place] [facility] 08/06/2020 16:19:51 09/06/2020 text/html This is a follow up after a right sacroiliac joint injection under fluoroscopic guidance. She reports 60% pain improvement of her right hip pain which is ongoing. She states she is doing better. She has a routine follow up with her primary care physican. Sudarshan Allen MD [address] [facility] , [address], [place], [address], [place] [facility] 09/06/2020 11:02:37 08/07/2021 text/html She is here for a follow up. She is accompanied by her daughter for today's visit. She is S/P Lumbar spine decompression L2-3 and L3-[address] Guerrero in October 2020 . She is complaining of increased pain in right lower extremity with numbness and tingling since the surgery. She is using a walker with a seat. She states she is unable to stand , sit or walk for any length of time due to pain. She had some swelling in her legs. She has no history of bladder or bowel incontinence. Sudarshan Allen MD [address] [facility] , [address], [place], [address], [place] - [facility] 08/12/2021 08:43:20 OBGyn Episode No OBEpisode recorded.
--- OUTSIDE RECORDS SUMMARY | 2025-02-14 10:24 | XMS_ITS | Clinical Summary ---
Author Organization [facility] Address [address] [place] [address] Phone Care Team Providers Care Neonatal Specialist Name Role Phone Arian Ashford MD Primary Care Provider Social History Tobacco Use Types Packs/Day Years Used Date Smoking Tobacco: Never Assessed Education Answer Date Recorded Are you interested in more education? Not on river e 11/21/2022 Are you concerned about learning? Not on file 11/21/2022 No 11/21/2022 No 11/21/2022 Digital Access Answer Date Recorded No 12/20/2022 No 12/20/2022 No 12/20/2022 Reliable internet access at home? Not on file 12/20/2022 Device with a working camera? Not on file Comments Unknown Sex and Gender Information Value Date Recorded Sex Assigned at Not on file Legal Sex Female 9:45 AM EDT Gender Identity Not on file Sexual Orientation Not on file Plan of Treatment Health Maintenance Due Date Last Done Comments DEPRESSION SCREENING 1952 PNEUMOCOCCAL VACCINES (50+ y ears) (1 of 1 - PCV) 1988 ZOSTER VACCINES (1 of 2) 1988 OSTEOPOROSIS SCREENING INITI AL (ONE-TIME) 11/27/2003 RSV VACCINE (1 - 1-dose 75+ series) 2013 COVID-19 VACCINE (2 - 2023-2 5 season) 2024 09/25/2020 Adult Td,Tdap Booster 11/03/2028 11/03/2018 HEPATITIS A VACCINES Aged Out No long er eligible based on patient's age to complete this topic HIB VACCINES Aged Out No longer eligi ble based on patient's age to complete this topic MENINGOCOCCAL VACCINES (ACWY) Aged Out No longer eligible based on patient's age to complete this topic MENINGOCOCCAL VACCINES (B) Aged Out N o longer eligible based on patient's age to complete this topic Medical Devices Not on file Insurance MEDICARE PART A & B [facility] EXTENSION MEDICARE SUPPLEMENT MEDICARE PART A & B [email or web address] MEDIC[facility] SUPPLEMENT MEDICARE PART A & [facility] MEDICARE SUPPLEMENT MEDICARE PART A & B [email or web address] MEDICARE SUPPLEMENT MEDICARE PART A & B [facility] MEDICARE SUPPLEMENT MEDICARE PART A & B [employer] MEDICARE SUPPLEMENT MEDICARE PART A & B [employer] MEDICARE SUPPLEMENT MEDICARE PART A & B [facility] MEDICARE SUPPLEMENT MEDICARE PART A & B [facility] EXTENSION MEDICARE SUPPLEMENT Care Teams Neonatal Specialist Relationship Specialty Start Date End Date Arian Ashford MD [address] [place] [address] PCP - General Internal Medicine 02/08/22 Additional Source Comments The information contained in this document represents components of the legal health record. It is not the complete legal health record.[facility]
--- OUTSIDE RECORDS SUMMARY | 2025-02-14 10:24 | XMS_ITS | Clinical Summary ---
Author Organization [facility] Address [address] [place] [address] Care Team Providers Care Principal Accounts Clerk Name Role Phone Arian Ashford MD Primary Care Provider [phone] Allergies Active Allergy Reactions Criticality Noted Date Comments Sulfamethoxazole-Trimetho prim Itching 09/25/2020 Nitrofurantoin Itching,Other (See Comments) High 03/16/2022 Tramadol 03/23/2018 head felt funny Medications Medication Sig Dispensed Refills Start Date End Date Status atenolol (TENORMIN) tablet 100 mg atenolol 100 mg tablet 0 Active gabapentin (NEURONTIN) 300 MG capsule gabapentin 300 mg capsule 0 Active losartan (COZAAR) tablet 25 mg losartan 25 mg tablet 0 Active ALPRAZolam (XANAX) 0.25 MG tablet Take 1 tablet (0.25 mg total) by mouth. 0 02/25/2012 Active darifenacin (ENABLEX) 7.5 MG 24 hr tablet darifenacin ER 7.5 mg tablet,extended release 24 hr 0 12/23/2021 Active Diclofenac Sodium 1 % GEL 0 03/09/2022 Active fluticasone (FLONASE) 50 MCG/ACT nasal spray fluticasone propionate 50 mcg/actuation nasal spray,suspension 0 Active hydroCHLOROthiazide (HYDRODIURIL) tablet 25 mg Take 1 tablet (25 mg total) by mouth. 0 02/25/2012 Active fosfomycin (MONUROL) 3 g PACK Take 3 grams (1 pack) on first day. Take a second pack 3 days after first pack 2 each 0 05/22/2022 Active losartan (COZAAR) tablet 50 mg 0 06/10/2022 Active amoxicillin (AMOXIL) 500 MG tablet Take 4 tabs 1 hour prior to dental appointment 20 tablet 3 06/11/2022 Active Immunizations Name Administration Dates Next Due Covid-19 (Moderna 12+) 100mcg/0.5mL dosage 09/25 Family History Medical History Relation Name Comments Cancer Father Diabetes Mother Cancer Sister Relation Name Status Comments Father Mother Sister Social History Tobacco Use Types Packs/Day Years Used Date Smoking Tobacco: Never Assessed Tobacco Cessation:Counseling Given: Not Answered Sex and Gender Information Value Date Recorded Sex Assigned at Not on file Gender Identity Not on file Sexual Orientation Not on file Job Start Date Occupation Industry Not on file Not on file Not on file Last Filed Vital Signs Vital Sign Reading Time Taken Comments Blood Pressure - - Pulse - - Temperature - - Respiratory Rate - - Oxygen Saturation - - Inhaled Oxygen Concentration - - Weight 94.3 kg (208 lb) 03/20/2022 10:28 AM EDT Height 167.6 cm (5' 6 ) 03/20/2022 10:28 AM EDT Body Mass Index 33.57 03/20/2022 10:28 AM EDT Plan of Treatment Health Maintenance Due Date Last Done Comments Depression Screening 1950 BMI Counseling 1956 Preventative Health Evaluation 1956 DTap / Tdap / Td (1 - Tdap) 1957 Shingrix-Zoster Vaccine (1 of 2) 1988 Fall Risk Assessment 11/27/2003 Osteoporosis Screening (DEXA Scan) 11/27/2003 Pneumococcal Vaccine (1 of 1 - PCV) 11/27/2003 RSV Adult > 60+ Yrs or Pregn ant (1 - 1-dose 75+ series) 2013 COVID-19 Vaccine (2 - 2023-2 5 season) 2024 09/25/2020 Influenza Vaccine (#1) 2025 Hepatitis B Vaccines Aged Out No long er eligible based on patient's age to complete this topic RSV Ped < 20 months Aged Out No longe r eligible based on patient's age to complete this topic Care Teams Principal Accounts Clerk Relationship Specialty Start Date End Date Arian Ashford MD [address] [place] [address] PCP - General Financial Investment Adviser 02/06/20
== END 2025-02-14 10:21 | disposition home or self-care (01) ==
LOC: HO.HOS 09:48
PROVIDERS: PCP Internal Medicine; Visit Provider Orthopaedic Surgery
DX: M17.11 Unilateral primary osteoarthritis, right knee (principal)
CPT/HCPCS: 99213; G2211

== ENCOUNTER 2025-02-14 10:24 | Outpatient (REF) | payer MEDICARE, OTHER, SELFPAY ==
--- OUTSIDE RECORDS SUMMARY | 2025-02-13 07:59 | XMS_ITS | Encounter Summary ---
Author Organization [facility] [place] [address] Care Team Providers Care Oven Loader Name Role Phone Arian Waldron MD Primary Care Provider [phone] Encounter Details Date Type Department Care Team (Latest Contact Info) Description 02/13/2025 7:59 AM EDT - 02/13/2025 11:59 PM EDT Hospital Encounter [facility] Ortho Xray [address] [place] [id number] Arrived Discharge Disposition: Home or Self Care Social History Tobacco Use Types Packs/Day Years Used Date Smoking Tobacco: Former Smokeless Tobacco: Never Alcohol Use Standard Drinks/Week Comments Not Currently 0 (1 standard drink = 0.6 oz pur e alcohol) Health Literacy Answer Date Recorded How often do you need to hav e someone help you when you read instructions, pamphlets, or other written material from your doctor or pharmacy? Sometimes 01/02/2025 Caregiver: How often do you need to have someone help you when you read instructions, pamphlets, or other written material from your doctor or pharmacy? Not on file 01/02/2025 Transportation Answer Date Recorded Has the lack of transportati on kept you from meetings, work, or from getting things needed for daily living? No Has the lack of transportati on kept you from medical appointments or from getting medications? No 12/20/2024 Social Isolation Answer Date Recorded How often do you feel lonely or isolated from those around you? Sometimes 01/02/2025 Food Risk Answer Date Recorded Within the past 12 months we worried whether our food would run out before we got money to buy more. Never true 12/22/2024 Within the past 12 months th e food we bought just didn't last and we didn't have money to get more. Never true 12/22/2024 Interpersonal Safety Answer Date Record ed Physical Abuse 12/19/2024 Verbal Abuse 12/19/2024 Comments Unknown Sex and Gender Information Value Date Recorded Sex Assigned at Female 06/26/2024 3:50 PM EST Legal Sex Female 10:14 PM EST Gender Identity Female 06/26/2024 3:50 PM EST Sexual Orientation Choose not to disclose 2023 3:50 PM EST documented as of this encounter Medications at Time of Discharge azelastine (ASTELIN) 137 mcg (0.1 %) nasal spray Administer 1 spray into each nostril 2 (two) times a day. 12/06/2024 brimonidine-brian loL (COMBIGAN) 0.2-0.5 % ophthalmic solution Administer 1 drop into the right eye every 12 (twelve) hours. dorzolamide (TRUSOPT) 2 % ophthalmic solution Administer 1 drop into both eyes 2 (two) times a day. 11/23/2024 Estring 2 mg (7.5 mcg /24 hour) vaginal ring Insert 2 mg into the vagina every 3 (three) months. 03/13/2024 montelukast (SINGULAIR) 10 mg tablet Take 1 tablet (10 mg total) by mouth 1 (one) time each day. 11/23/2024 documented as of this encounter Discharge Disposition Disposition Code Departure Means Destination Home or Self Care documented in this encounter Plan of Treatment Upcoming Encounters Date Type Department Care Team (Late st Contact Info) Description 03/30/2025 2:00 PM EDT Office Visit [facility] Cardiology [address] [place] [address] Ramon Dixon MD [address] [place] [address] [address] [place] [address] documented as of this encounter Procedures Procedure Name Priority Date/Time Associated Diagnosis Comments XR FEMUR 2+ VIEWS LEFT Routine 02/13/2025 10:44 AM EDT Pain documented in this encounter Results * XR Femur 2+ Views Left (02/13/2025 10:44 AM EDT) Narrative RIS PACS/VR - 02/13/2025 10:44 AM EDT This order has been auto-finalized and does not contain a result. us Yokasta Avery MD IMG XR PROCEDURES Final Result RIS PACS/VR documented in this encounter Visit Diagnoses Not on filedocumented in this encounter Additional Health Concerns Assessment Noted Time PHQ-9 Depression Total Score: 1 01/03/20 25 1:58 PM EDT documented as of this encounter Care Teams Oven Loader Relationship Specialty Start Date End Date Arian Waldron MD [address] [place] [address] PCP - General Floorworker 02/06/20 documented as of this encounter
--- OUTSIDE RECORDS SUMMARY | 2025-02-15 11:13 | XMS_ITS | Data Portability ---
Author Organization [facility] Pain Managem ent, PAIN OFFICE Address [address] [facility] [address] [place] [address] Care Team Providers Care Partition Assembly Machine Operator Name Role Phone ZENOBIA RAMSAY Primary Care Provider Assessment Encounter Date Assessment Date Assessment LastModified [...] 3:00 PM 2021 022 EDDY [facility] [place], [address], [address], [place], [address], 13:49:16 Medication Orders None recorded. Patient TargetsNo targets recorded. Patient Instructions Encounter Date Encounter Id Patient Instructions Last Modified By Organization Details Last Modified Time 03/12/2020 [id number] She was advised against bed rest lasting longer than four days and to continue activities as tolerated. [email or web address] Not available 03/13/2020 09:58:44 09/06/2020 [id number] Telehealth visit: The patient was located at home for this telephone electronic visit and gave consent for this visit to be conducted via telehealth. 15 minutes was spent on this call and greater than 50% of the visit was spent on counseling and coordination of care. [email or web address] Not available 09/06/2020 10:27:41 08/07/2021 [id number] She was advised against bed rest lasting longer than four days and to continue activities as tolerated. [email or web address] Not available 08/07/2021 15:56:16 Reason for Referral None Reported. Results Created Date Observation Date Name Description Value Unit Range Abnormal Flag Note LastModifiedBy Organization Detail LastModifiedTime 08/16/19 22 08/15/2021 MRI, lumba r spine , w/wo contr ast No observ ation record ed. [email or web address] [facility] [place] [address], [place], [address], 08/18/2021 16:02:34 Result Notes None recorded. Problems Name Problem SNOMED Code Status Onset Date Resolution Date Notes Provider Name and Address Organization Details Recorded Time Lumbosacral radiculopathy 6521074 Active Sudarshan kothari MD [address] , [address], [facility] [place], [address], [place] - [facility] 09:44:40 Degeneration of lumbar intervertebral disc 37159015 Active Sudarshan kothari MD [address] , [address], [facility] [place], [address], [place] [facility] 09:44:50 Lumbosacral spondylosis without myelopathy 69264425 Active Sudarshan kothari MD [address] , [address], [facility] [place], [address], [place] [facility] 09:45:04 Spinal stenosis of lumbar region 28315137 Active Sudarshan kothari MD [address] , [address], [facility] [place], [address], [place] [facility] 09:45:16 Problem Notes None recorded. Procedures Surgical History Date Name Laterality Status Provider Name and Address Organization Details Recorded Time 08/06/19 21 Sacroiliac Joint Steroid Injections, using Fluoroscopy completed Sudarshan Allen MD [address] , [address], [place], [address], [place] [facility] 08/06/2020 16:12:56 03/12/20 20 Fluoroscopic Guided Lumbar Facet Steroid Injections of levels completed Sudarshan Allen MD [address] , [address], [place], [address], [place] [facility] 03/12/2020 16:28:16 12/12/19 20 Lumbar Epidural steroid injection under fluoroscopic guidance completed Sudarshan Allen MD [address] , [address], [place], [address], [place] [facility] 12/14/2019 09:53:51 09/13/19 20 Lumbar Epidural steroid injection under fluoroscopic guidance completed Sudarshan Allen MD [address] , [address], [facility] [place], [address], [place] [facility] 09/15/2019 08:37:13 08/10/19 20 Intra-articular shoulder steroid injection under ultrasound guidance completed Sudarshan Allen MD [address] , [address], [place], [address], [place] [facility] 08/11/2019 09:57:26 06/27/20 19 Lumbar Transforaminal epidural steroid injection under fluroscopic guidance completed Sudarshan Allen MD [address] , [address], [place], [address], [place] [facility] 06/29/2019 09:11:07 02/09/20 19 Lumbar Epidural steroid injection under fluoroscopic guidance completed Sudarshan Allen MD [address] , [address], [place], [address], [place] - [facility] 02/09/2019 14:22:17 12/21/19 19 Lumbar Epidural steroid injection under fluoroscopic guidance completed Sudarshan Allen MD [address] , [address], [place], [address], [place] - [facility] 12/20/2018 10:48:59 [...] Name and Address Organization Details Recorded Time 76204 Ultram medicatio n Not available Not available Not available 11/25/2018 92569 6 [facility] [place] - [facility] 9 10:06:40 25184 Bactrim medicatio n itching Not available Not available 02/08/2019 85811 9 [facility] [place], [place] - [facility] 9 11:44:44 17378 Non-stero idal anti-infl ammatory agent (product) medicatio n edema Not available Not available 06/27/2019 13165 005 SNOMED Sudarshan kothari MD [address] [place] [address] , [address], [place], [address], [facility] - Pain Management 9 11:31:40 73225 nitrofura ntoin medicatio n other severe Not available 08/07/2021 7454 Rx[facility] Body Itchi ng Bernadine [facility], [place] - Pain Management 2 11:39:54 Medications Name [...] /min 98 % 98 % 32.6 kg/m2 77126.2 1 g 117/59 mm[Hg] Bernadine Ambrocio [place] [...] % 96 % 142/71 mm[Hg] Bernadine [place] - Pain Management 0 13:08:51 Social History Question Answer Notes LastModified by [employer] Details LastModified Time Tobacco Smoking Status Former Smoker Quit x 35 years [place] - Pain Management 11/25/2018 10:14:07 Which Illicit Or Recreational Drugs Have You Used? No [facility] Information not available 11/25/2018 Education 12 [employer] [email or web address] Information not available 11/25/2018 Live Alone Or With Others? Alone [facility] Information not available 11/25/2018 Marital Status [email or web address] Informatio n not available 11/25/2018 What Was The Date Of Your Most Recent Tobacco Screening? 01/19/2019 Information not available 02/15/2019 How Many Years Have You Smoked Tobacco? 25 [facility] Information not available 11/25/2018 Sex: Unknown Functional Status Question Answer Note LastModified by [employer] Details LastModified Time What is your level of alcohol consumption? None [facility] Information not available 11/25/2018 Are you currently employed? 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 [facility] Information not available 11/25/2018 Mental Status None [...] SNOMED-CT Code Diagnosis ICD10 Code Diagnosis Note [id number] Sudarshan Allen MD PAIN OFFICE [address] [facility] [address] [facility] [place] [address] 11/25/2018 09:41:35 11/25/2018 11:20:57 Lumbosacral radiculopathy 1983591 M54.17 Spinal yuan nosis of lumbar region 71000965 M48.061 Degenerati on of lumbar intervertebral disc 87947651 M51.36 Lumbosacra l spondylosis without myelopathy 95269838 M47.817 63822 Sudarshan Allen MD PAIN OFFICE [address] [place] [address] 12/20/2018 09:48:49 12/20/2018 13:59:04 Lumbosacral radiculopathy 5878964 M54.17 Spinal yuan nosis of lumbar region 59293311 M48.061 Degenerati on of lumbar intervertebral disc 10965332 M51.36 Lumbosacra l spondylosis without myelopathy 66115201 M47.817 12415 Sudarshan Allen MD PAIN OFFICE [address] [place] [address] 01/19/2019 11:15:24 01/19/2019 13:50:46 Lumbosacral radiculopathy 0215901 M54.17 Spinal yuan nosis of lumbar region 67676071 M48.061 Degenerati on of lumbar intervertebral disc 12180694 M51.36 Lumbosacra l spondylosis without myelopathy 35246485 M47.817 80520 Sudarshan Allen MD PAIN OFFICE [address] [place] [address] 02/08/2019 11:13:51 02/09/2019 14:25:36 Lumbosacral radiculopathy 3554973 M54.17 Spinal yuan nosis of lumbar region 38963746 M48.061 Degenerati on of lumbar intervertebral disc 38800063 M51.36 Lumbosacra l spondylosis without myelopathy 63930620 M47.817 07968 Sudarshan Allen MD PAIN OFFICE [address] [place] [address] 06/27/2019 11:13:24 06/29/2019 09:15:05 Lumbosacral radiculopathy 2421896 M54.17 Spinal yuan nosis of lumbar region 10782336 M48.061 Degenerati on of lumbar intervertebral disc 01960725 M51.36 Lumbosacra l spondylosis without myelopathy 78378587 M47.817 21635 Sudarshan Allen MD [facility] PAIN OFFICE [address] [place] [employer] [facility] [address] 08/10/2019 09:09:46 08/11/2019 10:01:12 Osteoarthritis of joint of right shoulder region 4681680643 64808 M19.011 17568 Sudarshan Allen MD SV PAIN OFFICE [address] [place] [employer] [facility] [place] [address] 09/13/2019 15:04:18 09/14/2019 16:07:55 Lumbosacral radiculopathy 6539471 M54.17 Spinal yuan nosis of lumbar region 55920139 M48.061 Degenerati on of lumbar intervertebral disc 56516820 M51.36 Lumbosacra l spondylosis without myelopathy 89685660 M47.817 68702 Sudarshan Allen MD PAIN OFFICE [address] [facility] [place] [address] 12/12/2019 12:53:38 12/14/2019 10:17:03 Lumbosacral radiculopathy 9388044 M54.17 Spinal yuan nosis of lumbar region 42202856 M48.061 Degenerati on of lumbar intervertebral disc 68823828 M51.36 Lumbosacra l spondylosis without myelopathy 06914049 M47.817 79871 Sudarshan Allen MD [facility] PAIN OFFICE [address] [employer] [facility] [address] 01/12/2020 10:16:11 01/15/2020 15:58:28 Lumbosacral spondylosis without myelopathy 88730814 M47.817 Lumbosacra l radiculopathy 8092652 M54.17 Degenerati on of lumbar intervertebral disc 21064987 M51.36 Spinal yuan nosis of lumbar region 88395321 M48.061 86191 Sudarshan Allen MD PAIN OFFICE [address] [employer] [address] [facility] [address] 03/12/2020 12:53:30 03/13/2020 10:05:28 Lumbosacral spondylosis without myelopathy 14209045 M47.817 Lumbosacra l radiculopathy 8953776 M54.17 Degenerati on of lumbar intervertebral disc 30979300 M51.36 Spinal yuan nosis of lumbar region 69398111 M48.061 72410 Sudarshan Allen MD PAIN OFFICE [address] [place] [address] 04/12/2020 10:58:37 04/12/2020 13:08:46 Lumbosacral spondylosis without myelopathy 91870984 M47.817 Lumbosacra l radiculopathy 6774879 M54.17 Degenerati on of lumbar intervertebral disc 28187657 M51.36 Spinal yuan nosis of lumbar region 20320318 M48.061 06868 Sudarshan Allen MD PAIN OFFICE [address] [place] [address] 08/06/2020 15:25:45 08/06/2020 16:17:10 Lumbosacral spondylosis without myelopathy 87639081 M47.817 Lumbosacra l radiculopathy 2511082 M54.17 Degenerati on of lumbar intervertebral disc 96799412 M51.36 Spinal yuan nosis of lumbar region 92057652 M48.061 Inflammati on of sacroiliac joint 49659268 M46.1 20919 Sudarshan Allen MD PAIN OFFICE [address] [place] [address] 09/06/2020 10:09:44 09/06/2020 10:28:10 Lumbosacral spondylosis without myelopathy 94051853 M47.817 Lumbosacra l radiculopathy 4576155 M54.17 Degenerati on of lumbar intervertebral disc 40019697 M51.36 Spinal yuan nosis of lumbar region 38587411 M48.061 Inflammati on of sacroiliac joint 10610339 M46.1 18679 Sudarshan Allen MD PAIN OFFICE [address] [place] [address] 08/07/2021 11:27:03 08/07/2021 16:06:25 Lumbosacral radiculopathy 6529491 M54.17 Spinal yuan nosis of lumbar region 70275876 M48.061 Degenerati on of lumbar intervertebral disc 08527385 M51.36 Lumbosacra l spondylosis without myelopathy 78126365 M47.817 Health Concerns Section Related Observation LastModified by Organization Detai ls LastModified Time None Recorded Concern Status LastModified by Organization Details LastModified Time None Recorded Advance Directives Directive None Recorded Payers Insurance Date Sequence Insurance Name Policy Number Policy Díaz Covered Member ID Díaz Member ID Guarantor Name 08/04/2021 2 [facility] [id number] Marie Machado [id number] Marie Machado 08/04/2021 MEDICARE B-[place]: [employer]ATIONAL [employer] Marie Harper Jeannette [id number] Marie Machado 08/04/2021 1 MEDICARE B-[place]: NGS Marie Harper Jeannette [id number] Marie Machado 02/15/2020 1 UNSPECIFIED REMIT PAYOR Marie Machado Notes Date Note Type Note Provider Name and Address Organization Details Recorded Time 03/12/2020 text/html She is here for a right lumbar facet joint injection under fluoroscopic guidance Sudarshan Allen MD [address] [place] [address] , [address], [place], [address], [place] - [facility] 03/13/2020 10:09:22 [...] or bowel incontinence. Sudarshan Allen MD [address] [facility] , [address], [place], [address], [place] - [facility] 04/15/2020 08:17:03 08/06/2020 text/html She is here for a right sacroiliac joint injection under fluoroscopic guidance Sudarshan Allen MD [address] [facility] , [address], [place], [address], [place] - [facility] 08/06/2020 16:19:51 09/06/2020 text/html This is a follow up after a right sacroiliac joint injection under fluoroscopic guidance. She reports 60% pain improvement of her right hip pain which is ongoing. She states she is doing better. She has a routine follow up with her primary care physican. Sudarshan Allen MD [address] [facility] , [address], [place], [address], [place] - [facility] 09/06/2020 11:02:37 [...] or bowel incontinence. Sudarshan Allen MD [address] [facility] , [address], [place], [address], [place] - [facility] 08/12/2021 08:43:20 OBGyn Episode No OBEpisode recorded.
--- OUTSIDE RECORDS SUMMARY | 2025-02-15 11:13 | XMS_ITS ---
Author Name [facility]ISP Organization Unknown Encounters Encounter Type Encounter Reason Primary Diagnosis Location Date Inpatient DISPLACED INTERTROCHANTERIC FRACTURE OF LEFT FEMUR, SUBSEQUENT ENCOUNTER FOR CLOSED FRACTURE WITH ROUTINE HEALING [facility] 01/03/2025 Ambulatory [facility] 10/20/2022 Care Team Organization Name Specialty Phone Email Start Date End Da te [facility] 01/04/2025 [facility] 01/03/2025 [facility] ZENOBIA RAMSAY Primary Care 06/25/202203/13
--- OUTSIDE RECORDS SUMMARY | 2025-02-15 11:13 | XMS_ITS | Clinical Summary ---
Author Organization [facility] Address [address] [place] [address] Phone Care Team Providers Care Plate Fitter Name Role Phone Arian Ashford MD Primary [...] file Insurance MEDICARE PART A & B [facility] EXTENSION MEDICARE SUPPLEMENT MEDICARE PART [facility] & [facility] SUPPLE[facility] MEDIC[facility] PART A & [facility] SUPPLEMENT MEDICARE PART A & B [facility] MEDICARE SUPPLEMENT MEDICARE PART A & B [facility]ION MEDICARE SUPPLEMENT MEDICARE PART A & B [employer] MEDICARE SUPPLEMENT Member Subscriber Plan / Payer ( fective 2017-) Name:Marie Machado Relation to Subscriber:Self Name:Marie Machado Payer ID:[id number] ([facility]) Type:Indemnity Address: [facility] [address] [place] [address] MEDICARE PART A & B [employer] MEDICARE SUPPLEMENT MEDICARE PART A & B [facility] MEDICARE SUPPLEMENT MEDICARE PART A & B [facility] MEDIC[facility] SUPPLEMENT Care Teams Plate Fitter Relationship Specialty Start Date End Date Arian Ashford MD [address] [place] [address] PCP - General Internal Medicine 02/08/22 Additional Source Comments The information contained in this document represents components of the legal health record. It is not the complete legal health record.[facility]
--- OUTSIDE RECORDS SUMMARY | 2025-02-15 11:13 | XMS_ITS | Patient Health Record ---
Author Organization [facility] Address [address] [facility] [place] [phone] Care Team Providers Care Foot Specialist Name Role Phone Arian Mcneil MD Primary Care Provider Unavailab Jd Fonseca Unavailable [phone] Allergies Allergen (clinical drug ingredient) Drug/Non Drug Allergy documented on EMR Reaction Allergy Type Onset Date Status adhesive tape (uncoded) rash Allergy Active tramadol ultram (uncoded) headache Allergy Act riky Reason For Referral No Information Medications Medication SIG (Take, Route, Frequency, Duration) Notes Start Date End Date Status Diclofenac Active Gabapentin 300 MG 1 capsule Orally Onc e a day; Duration: 30 day(s) Active Multivitamin Active Tylenol 325 MG Orally Activ e Cranberry Active Atenolol 100 MG 1 tablet Orally Once a day; Duration: 30 day(s) Active Losartan Potassium 25 MG 1 tablet Orally Once a day; Duration: 30 day(s) Active Social History Tobacco Use: Social History Observation Description Date Details (start date - stop date) Former Smoker NA - NA Tobacco Use/Smoking Question Answer Notes Are you a: former smoker When did you stop smoking? 20 years ago Additional Findings: Tobacco Non-User Current no n-smoker Alcohol Screen Question Answer Notes Did you have a drink containing alcohol in the p ast year? 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) Active confirmed Plan Of Treatment No Information Insurance Providers Payer Name Payer Address Payer Phone Subscriber Number Group Number Insured Name Patient Relationship to Insured Coverage Start Date Coverage End Date Medicare National [employer] [address] [place] [address] [id number] Marie Machado Self - patient is the insured [employer] [address] [place] [address] [phone] [id number] Marie Machado Self - patient is the insured Medical (General) History Medical History History ICD Code Arthritis Back,Hip,and Knee pain Gout High blood pressure Numbness Sciatica Measles Mumps Chicken pox Transfusions Spinal stenosis Surgical History Surgery Date(Month/Year) Hip replacement, Right 2012 hysterectomy benign breast lump 1958 tubes overies Hospitalization History Reason Date(Month/Year) [facility]- Fall- Injured ligaments in knees - 10 days 11/14/2018
--- OUTSIDE RECORDS SUMMARY | 2025-02-15 11:13 | XMS_ITS | Clinical Summary ---
Author Organization [facility] Address [address] [place] [address] Care Team Providers Care Home Staging Specialist Name Role Phone Arian Ashford MD Primary Care Provider [phone] Allergies Active Allergy Reactions Criticality Noted Date [...] age to complete this topic Care Teams Home Staging Specialist Relationship Specialty Start Date End Date Arian Ashford MD [address] [place] [address] PCP - General Bread Distributor 02/06/20
== END 2025-02-14 10:25 | disposition home or self-care (01) ==
LOC: HO.HOSX 10:24
PROVIDERS: Visit Provider Orthopaedic Surgery
DX: M25.561 Pain in right knee (principal); M17.11 Unilateral primary osteoarthritis, right knee; Z79.1 Long term (current) use of non-steroidal anti-inflammatories (NSAID); Z79.899 Other long term (current) drug therapy
CPT/HCPCS: 99212

== ENCOUNTER 2025-03-08 15:14 | Outpatient (AMB) | payer MEDICARE, OTHER, SELFPAY ==
[2025-03-08 15:23] VITALS: BMI 34.5
--- NOTE | 2025-03-08 15:23 | A.OFFVIS_ITS ---
Vital Signs 03/08/25 15:23 Height 5 ft 3 in Weight 195 lb BMI 34.5 Intake Visit Reasons: Inj- Right knee Durolane Intake Note: Marie 84 yr old female presents with complaints of right knee pain. She describes her pain as sharp in nature. She has failed the last 3 months of conservative treatment. She has had cortisone injections in the past which gave her minimal relief. She wishes to hold off on surgery if at all possible. She has tried Tylenol and anti-inflammatory medicines which gave her only mild relief. Allergies nitrofurantoin Allergy (Mild, Verified 03/08/25 15:24) itchy sulfamethoxazole (From Bactrim) Allergy (Mild, Verified 03/08/25 15:24) itchy tramadol (From Ultram) Allergy (Mild, Verified 03/08/25 15:24) itchy trimethoprim (From Bactrim) Allergy (Mild, Verified 03/08/25 15:24) itchy Medication List - Last Reconciled 03/09/25 by Apollo Lucio MD atenolol 100 mg PO QAM bimatoprost 0.01% (Lumigan) 1 drp ophthalmic (eye) QPM brimonidine-timolol 0.2-0.5 % (Combigan) 1 drp ophthalmic (eye) BID diclofenac sodium ER 100 mg PO DAILY PRN dorzolamide 2% 1 drp ophthalmic (eye) TID gabapentin 400 mg PO DAILY lidocaine 4% (Lido Porfirio) 1 patch topical QID PRN lidocaine HCl 4% (Aspercreme (lidocaine HCl)) 1 appl topical QID PRN losartan 50 mg PO DAILY ondansetron 4 mg PO Q8-12H PRN PFSH Medical History (Updated 02/14/25 @ 10:25 by Apollo Lucio MD) Thoracic aneurysm without mention of rupture Pinched nerve Arthritis HTN (hypertension) Vertigo Surgical History 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 Family History Mother Diabetes Hypertension Father Leukemia Son Prostate cancer Social History Household Members: None Housing: Condominium Alcohol intake: never Patient Tobacco Use Status: Never used Tobacco Current occupational status: retired Physical Exam Vital Signs: BMI result Body Mass Index 34.5 Const Other: Well-nourished well-developed very friendly female awake alert and oriented x3 in no acute distress Extrem Other: Right knee examination shows a minimal effusion, palpable crepitus with range of motion, pain with range of motion, no instability Office Procedures AMB Joint Injection/Aspiration Joint Injection/Aspiration Primary Site: right knee Prep: site was prepped using aseptic technique Injected: 60 mg of (Durolane viscosupplementation) and 1% plain lidocaine Procedure: The patient tolerated the procedure well Coding 05424 - Large joint Procedure code (CPT) selection complete Results Reviewed Results Reviewed: X-rays of the patient's right knee taken previously show joint space narrowing, subchondral sclerosis, no acute bony abnormalities Assessment & Plan Assessment & Plan (1) Osteoarthritis of right knee: Code(s): M17.11 - Unilateral primary osteoarthritis, right knee Category: Medical Plan Ms. Machado presents with progressively worsening right knee pain due to osteoarthritis. The risks and benefits of a right knee Durolane viscosupplementation injection were discussed at length with the patient. The p atient wished proceed. She tolerated the injection well. She will continue with her home exercise program. She will contact me prior to her follow-up appointment in 3 months should any questions or concerns arise. Feel free to call me at any time should questions regarding her orthopedic management arise. I spent 22 minutes in reviewing the patient's records and imaging studies, seeing the patient and documenting in the medical record. Orders: Orders AMB Joint Injection/Aspiration 03/08/25 M17.11 - Unilateral primary osteoarthritis, right knee Coding Level of Care Code Est Pt Level 3 (83869) Complex EM visit Add On G2211 Diagnoses Osteoarthritis of right knee M17.11 CPT Codes Coding - 52384 Large joint: 04108 - Large joint ([id number])
--- OUTSIDE RECORDS SUMMARY | 2025-03-08 15:41 | XMS_ITS | Clinical Summary ---
Author Organization [facility] Address [address] [place] [id number] Phone Care Team Providers Care Information Clerk Name Role Phone Arian Ashford MD [...] file Insurance MEDICARE PART A & B [facility] [employer] MEDICARE SUPPLEMENT MEDICARE PART A & B [facility] SUPPLE[facility] MEDICARE PART A & B [facility] MEDICARE SUPPLEMENT MEDICARE PART A & B [facility] SUPPLEMENT MEDICARE PART A & B [facility] MEDICARE SUPPLEMENT MEDICARE PART A & B [employer] MEDICARE SUPPLEMENT MEDICARE PART A & B [employer] MEDICARE SUPPLEMENT MEDICARE PART A & B [facility] MEDICARE SUPPLEMENT MEDICARE PART A & B [facility] SUPPLEMENT Care Teams Information Clerk Relationship Specialty Start Date End Date Arian Ashford MD [address] [place] [id number] PCP - General Internal Medicine 02/08/22 Additional Source Comments The information contained in this document represents components of the legal health record. It is not the complete legal health record.[facility]
--- OUTSIDE RECORDS SUMMARY | 2025-03-08 15:42 | XMS_ITS | Clinical Summary ---
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 Name Role Phone Arian Waldron MD Primary Care Provider [phone] Allergies Active Allergy Reactions Criticality Noted Date Comments Hydromorphone Hallucinations 12/19/2024 Nitrofurantoin Itching,Other,Rash High 03/16/2022 nitrofurantoin Nsaids (Non-Steroidal Anti-Inflammatory Drug) Swelling 12/16/2024 Oxycodone Hallucinations 12/19/2024 Prednisone Other 12/16/2024 H/x glaucoma Sulfamethoxazole-Trimetho prim Itching 09/25/2020 Tramadol Unknown 03/23/2018 Other Reaction(s): head issues head felt funny Medications azelastine (ASTELIN) 137 mcg (0.1 %) nasal spray Administer 1 spray into each nostril 2 (two) times a day. Active brimonidine-reynaldo oloL (COMBIGAN) 0.2-0.5 % ophthalmic solution Administer 1 drop into the right eye every 12 (twelve) hours. Active dorzolamide (TRUSOPT) 2 % ophthalmic solution Administer 1 drop into both eyes 2 (two) times a day. 5 Active Estring 2 mg (7.5 mcg /24 hour) vaginal ring Insert 2 mg into the vagina every 3 (three) months. 4 Active montelukast (SINGULAIR) 10 mg tablet Take 1 tablet (10 mg total) by mouth 1 (one) time each day. 5 Active gabapentin (NEURONTIN) 400 mg capsule Take 2 capsules (800 mg total) by mouth every 8 (eight) hours. 5 Active atenoloL (TENORMIN) 25 mg tablet Take 1 tablet (25 mg total) by mouth 1 (one) time each day. 5 Active Active Problems Problem Noted Date Diagnosed Date Confusion 12/23/2024 HTN (hypertension) 12/19/2024 Closed fracture of femur, intertrochanteric, lef t, sequela 12/19/2024 Closed left hip fracture, in itial encounter ([facility] V24, [facility] V28) 12/16/2024 Encounters Date Type Department Care Team Description 02/13/2025 7:59 AM EDT - 02/13/2025 11:59 PM EDT Hospital Encounter [facility] Ortho Xray [address] [place] [address] Discharge Disposition: Home or Self Care 01/01/2025 Plan of Care Documentation [facility] Inpatient Rehab [address] [place] [phone] 12/25/2024 Plan of Care Documentation [facility] Inpatient Rehab [address] [place] [phone] 12/19/2024 2:27 PM EDT - 01/03/2025 12:51 PM EDT Hospital Encounter [facility] Inpatient Rehab [address] [place] [phone] Bonnie Anne DO Closed fracture of femur, intertrochanteric, left, sequela [S72.142S] (Primary Dx) Discharge Disposition: Residential Facility 12/17/2024 9:30 AM EDT Anesthesia Event [facility] Main OR [address] [place] [phone] Atruro Cortez MD Claudio, Raymund, CRNA 12/17/2024 9:15 AM EDT - 12/17/2024 11:20 AM EDT Surgery [facility] Main OR [address] [place] [phone] Cameron Brooks MD FIXATION LEFT GAMMA NAIL 12/16/2024 1:55 PM EDT - 12/19/2024 1:30 PM EDT Hospital Encounter [facility] Medical Surgical Unit [address] [place] [phone] Gerardo Escalera MD Dunbar, MD Jacquelyn Rosenbaum Carlos M, MD Rasul, Yar M, MD Alam, MD Sabino Closed left hip fracture, initial encounter ([facility] V24, [facility] V28) (Primary Dx) Discharge Disposition: Rehab Facility from Last 3 Months Immunizations Name Administration Dates Next Due Moderna SARS-CoV-2 COVID-19, mRNA, LNP-S, preservative free 09/25/2020 Surgical History Surgery Date Site/Laterality Comments TONSILLECTOMY PROCEDURE: HISTORICAL TONSILLECTOMY APPENDECTOMY PROCEDURE: OK APPENDECTOMY OTHER SURGICAL HISTORY 1969 PROCEDURE: OK TOTAL ABDOMINAL HYSTERECT W/WO RMVL TUBE OVARY; COMMENT: Fibroids TVH CHOLECYSTECTOMY PROCEDURE: OK CHOLECYSTECTOMY SALPINGOOPHORECTOMY 1991 PROCEDURE: OK LAPAROSCOPY W/RMVL ADNEXAL STRUCTURES; COMMENT: BSO for 8 cm peritubal cystic mass, benign OTHER SURGICAL HISTORY 2011 PROCEDURE: OK ARTHRP ACETBLR/PROX FEM PROSTC AGRFT/ALGRFT; COMMENT: R BREAST BIOPSY 1957 PROCEDURE: BX BREAST; PERC NEEDLE CORE W/IMAG GUID; COMMENT: bx ? 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 Osteoarthritis of right hip DX:O steoarthritis of right hip 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 Anxiety DX:Anxiety Urinary urgency DX:Urinary urgen cy Hyperplastic colonic polyp 11/24/2012 DX:Hy perplastic colonic polyp Pain and swelling of knee DX:Tonja n and swelling of knee Osteoarthritis of knee DX:Osteoa rthritis of knee Family History Medical History Relation Name Comments Breast cancer Aunt mat 60 Heart attack Brother Other cancer Father Other: Leukemia Father at 90 Coronary artery disease Mother Diabetes Mother Heart attack Mother Hypertension Mother Other: Mitral Valve Disease Sister Relation Name Status Comments Aunt mat 60 Brother Father Mother Sister Social History Tobacco Use [...] not to disclose 2023 3:50 PM EST Obstetrics History Para Term AB IAB SAB Ectopic Multiple Livin g Live Births 3 3 3 3 Date Outcome GA Total Labor Labor/2nd/3rd Weight Sex Type Anes PTL Florina A1 A5 Name Clin Term Term Term Last Filed Vital Signs Vital Sign Reading Time Taken Comments Blood Pressure 112/55 01/03/2025 9:32 AM EDT Pulse 63 01/03/2025 9:32 AM EDT Temperature 36.3 C (97.3 F) 01/03/2025 9:32 AM EDT Respiratory Rate 16 01/03/2025 9:32 AM EDT Oxygen Saturation 100% 01/03/2025 9:32 AM EDT Inhaled Oxygen Concentration - - Weight 86.5 kg (190 lb 12.8 oz) 025 11:00 AM EDT Height 165.1 cm (5' 5 ) 12/16/2024 2:47 PM EDT Body Mass Index 31.75 12/16/2024 2:47 PM EDT Plan of Treatment Upcoming Encounters Date Type Department Care Team (Late st Contact Info) Description 03/30/2025 2:00 PM EDT Office Visit [facility] Cardiology [address] [place] [phone] Ramon Dixon MD [address] [place] [address] DR[address] [place] [address] Health Maintenance Due Date Last Done Comments Zoster Vaccines (1 of 2) 1988 RSV Immunization Adult Patients (1 - 1-dose 75+ series) 2013 Cholesterol Screening (Lipid Panel) 07/04/2022 Osteoporosis Screening (Bone Density Screening) 07/04/2022 COVID-19 Vaccine ( season) 2024 05/26/2023, 05/04/2022, 12/11/2021, Additional history exists Medicare Annual Wellness Visit 05/13/2024 05/13/2023 Influenza Vaccine (#1) 2025 , 05/13/2023, 05/15/2022, Additional history exists Hypertension/CHF/CAD Annual BMP Blood Test 01/01/2026 01/01/2025, 12/29/2024, 12/26/2024, Additional history exists Social Influencers of Health Screening 01/02/2026 01/02/2025 Falls Risk Assessment 01/03/2026 01/03/2025 DTaP,Tdap,and Td Vaccines (2 - Td or Tdap) 11/03/2028 11/03/2018 Pneumococcal Vaccine: 50+ Years Completed 05/20/2024 Depression Screening Completed 01/02/2025 HIB Vaccines Aged Out No longer eligi ble based on patient's age to complete this topic HPV Vaccines Aged Out No longer eligi ble based on patient's age to complete this topic Hepatitis A Vaccines Aged Out No long er eligible based on patient's age to complete this topic Hepatitis B Vaccines Aged Out No long er eligible based on patient's age to complete this topic IPV Vaccines Aged Out No longer eligi ble based on patient's age to complete this topic MMR Vaccines Aged Out No longer eligi ble based on patient's age to complete this topic Meningococcal ACWY Vaccine Aged Out N o longer eligible based on patient's age to complete this topic Meningococcal B Vaccine Aged Out No l onger eligible based on patient's age to complete this topic RSV Immunization Patients Under 20 months Aged Out No longer eligible based on patient's age to complete this topic Varicella Vaccines Aged Out No longer eligible based on patient's age to complete this topic Medical Devices Implanted Type Area Twister Hand Device Identifier Shelf Expiration Date Model / Serial / Lot Nail Gamma3 S Lng [id number] - Sn/A - [id number] Implanted:Qty: 1 on 12/17/2024 by Cameron Brooks MD at [facility] Internal and External Fixation Left: Hip [employer] [id number] 02/23/2028 3525-038 [id number] / N/A / [id number] 80S Screw Lag Ti Jagdish 3 10.5x95mm Gamma 3 Nail System - Sn/A - [id number] Implanted:Qty: 1 on 12/17/2024 by Cameron Brooks MD at [facility] Internal and External Fixation Left: Hip [employer] [id number] 12/23/2026 [id number] S / N/A / [id number] 95S Screw Lcking T2 Fthrd 5x52.5mm Ster - Sn/A - [id number] Implanted:Qty: 1 on 12/17/2024 by Cameron Brooks MD at [facility] Internal and External Fixation Left: Hip [employer] [id number] 06/24/2027 [id number] S / N/A / [id number] 52S Procedures Procedure Name Priority Date/Time Associated Diagnosis Comments XR FEMUR 2+ VIEWS LEFT Routine 10:44 AM EDT Pain XR FEMUR 2+ VIEWS LEFT Routine 10:17 AM EDT MAGNESIUM Routine 01/01/2025 5:55 AM EDT COMPLETE BLOOD COUNT Routine 01/01/2025 5:55 AM EDT BASIC METABOLIC PANEL Routine 01/01/2025 5:55 AM EDT CREATININE, SERUM Routine 12/29/2024 12: 29 PM EDT LAVENDER - EDTA Routine 12/29/2024 12:28 PM EDT EXTRA TUBES Routine 12/29/2024 12:28 PM EDT BASIC METABOLIC PANEL Routine 12/26/2024 4:24 AM EDT COMPLETE BLOOD COUNT Routine 12/26/2024 4:24 AM EDT LAVENDER - EDTA Routine 12/25/2024 9:40 AM EDT EXTRA TUBES Routine 12/25/2024 9:40 AM EDT MAGNESIUM Routine 12/25/2024 9:40 AM EDT MAGNESIUM Routine 12/24/2024 9:46 AM EDT COMPREHENSIVE METABOLIC PANEL Routine 12/24/2024 9:46 AM EDT LAVENDER - EDTA Routine 12/24/2024 9:44 AM EDT EXTRA TUBES Routine 12/24/2024 9:44 AM EDT JAMES URINE CULTURE TUBE Routine 12/24/19 10:00 AM EDT URINALYSIS WITH REFLEX MICROSCOPIC AND CULTURE Routine 12/23/2024 10:00 AM EDT URINALYSIS WITH REFLEX MICROSCOPIC AND CULTURE Routine 12/23/2024 10:00 AM EDT CULTURE URINE Routine 12/23/2024 10:00 AM EDT FERRITIN Add-On 12/20/2024 4:39 AM EDT IRON Add-On 12/20/2024 4:39 AM EDT CBC WITH AUTO DIFFERENTIAL Routine 12/20/2024 4:39 AM EDT COMPREHENSIVE METABOLIC PANEL Routine 12/20/2024 4:39 AM EDT CBC AND DIFFERENTIAL Routine 12/20/2024 4:39 AM EDT JAMES URINE CULTURE TUBE Routine 12/20/19 4:45 PM EDT URINALYSIS WITH REFLEX MICROSCOPIC AND CULTURE Routine 12/19/2024 4:45 PM EDT URINALYSIS WITH REFLEX MICROSCOPIC AND CULTURE Routine 12/19/2024 4:45 PM EDT CULTURE URINE Routine 12/19/2024 4:45 PM EDT CPAP NIV Routine 12/19/2024 3:10 PM EDT CBC WITH AUTO DIFFERENTIAL STAT 12/18/2024 7:07 AM EDT CBC AND DIFFERENTIAL STAT 12/18/2024 7:07 AM EDT SST - GOLD Routine 12/18/2024 7:05 AM EDT EXTRA TUBES Routine 12/18/2024 7:05 AM EDT XR HIP 2-3 VIEWS LEFT Routine 12/17/2024 11:15 AM EDT TH AN ENDOTRACHEAL(NO CHARGE) Routine 12/17/2024 10:07 AM EDT FIXATION HIP CANNULATED SCREW 12/17/2024 9:30 AM EDT LEFT HIP FRACTURE CBC WITH AUTO DIFFERENTIAL Routine 12/17/2024 6:05 AM EDT CBC AND DIFFERENTIAL Routine 12/17/2024 6:05 AM EDT MAGNESIUM Routine 12/17/2024 6:05 AM EDT BASIC METABOLIC PANEL Routine 12/17/2024 6:05 AM EDT XR CHEST 1 VIEW STAT 12/16/2024 3:36 PM EDT XR LUMBAR SPINE 2-3 VIEWS STAT 12/16/2024 3:36 PM EDT XR HIP 2-3 VIEWS LEFT STAT 12/16/2024 3:36 PM EDT CBC WITH AUTO DIFFERENTIAL STAT 12/16/2024 2:44 PM EDT PROTHROMBIN TIME WITH INR STAT 12/16/2024 2:44 PM EDT ACTIVATED PARTIAL THROMBOPLASTIN TIME STAT 12/16/2024 2:44 PM EDT TYPE AND SCREEN STAT 12/16/2024 2:44 PM EDT BASIC METABOLIC PANEL STAT 12/16/2024 2:44 PM EDT CBC AND DIFFERENTIAL STAT 12/16/2024 2:44 PM EDT from Last 3 Months Results * XR Femur 2+ Views Left (02/13/2025 10:44 AM EDT) Only the most recent of2 resultswithin the time period is included. Narrative RIS PACS/VR - 02/13/2025 10:44 AM EDT This order has been auto-finalized and does not contain a result. us Yokasta Avery MD [facility] XR PROCEDURES Final Result RIS PACS/VR * (ABNORMAL) Complete blood count (01/01/2025 5:55 AM EDT) Only the most recent of2 resultswithin the time period is included. WBC 6.6 4.8 - 10.8 K/mcL LAB HEMETOLOGY METHOD 01/01/2025 6:11 AM T [facility] RBC 3.40(L) 3.80 - 4.80 M/mcL LAB HEMETOLOGY METHOD 01/01/2025 6:11 AM T [facility] Hemoglobin 9.3(L) 11.5 - 16.0 g/dL LAB HEMETOLOGY METHOD 01/01/2025 6:11 AM [facility] Hematocrit 29.7(L) 35.0 - 47.0 % LAB HEMETOLOGY METHOD 01/01/2025 6:11 AM [facility] MCV 86.3 79.0 - 98.0 FL LAB HEMETOLOGY METHOD 01/01/2025 6:11 AM [facility] MCH 27.0 27.0 - 32.0 pcg LAB HEMETOLOGY METHOD 01/01/2025 6:11 AM EDT [facility] MCHC 31.3(L) 32.0 - 37.0 g/dL LAB HEMETOLOGY METHOD 01/01/2025 6:11 AM EDT [facility] RDW 14.7 11.0 - 15.0 % LAB HEMETOLOGY METHOD 01/01/2025 6:11 AM EDT [facility] Platelets 438(H) 130 - 400 K/mcL LAB HEMETOLOGY METHOD 01/01/2025 6:11 AM EDT [facility] MPV 9.4 7.0 - 11.0 FL LAB HEMETOLOGY METHOD 01/01/2025 6:11 AM EDT [facility] NRBC 0.0 <1.0 % LAB HEMETOLOGY METHOD 01/01/2025 6:11 AM EDT [facility] NRBC Absolute 0.00 <0.10 K/mcL LAB HEMETOLOGY METHOD 01/01/2025 6:11 AM EDT [facility] Blood Venous blood specimen / Unknown Venipuncture / Unknown 01/01/2025 5:55 AM EDT 01/01/2025 6:04 AM EDT Estefany Phillips NP LAB BLOOD ORDERABLES Final Result [facility] [address] [place] [address], * (ABNORMAL) Magnesium (01/01/2025 5:55 AM EDT) Only the most recent of4 resultswithin the time period is included. Magnesium 1.7(L) 1.9 - 2.6 mg/dL LAB CHEMISTRY METHOD 01/01/2025 6:28 AM EDT [facility] Blood Venous blood specimen / Unknown Venipuncture / Unknown 01/01/2025 5:55 AM EDT 01/01/2025 6:04 AM EDT Estefany Phillips NP LAB BLOOD ORDERABLES Final Result [facility] [address] [place] [address], * (ABNORMAL) Basic metabolic panel (01/01/2025 5:55 AM EDT) Only the most recent of4 resultswithin the time period is included. Sodium 139 133 - 145 mmol/L LAB CHEMISTRY METHOD 01/01/2025 6:28 AM [facility] Potassium 4.2 3.5 - 5.5 mmol/L LAB CHEMISTRY METHOD 01/01/2025 6:28 AM [facility] Chloride 106 96 - 110 mmol/L LAB CHEMISTRY METHOD 01/01/2025 6:28 AM [facility] CO2 29 21 - 32 mmol/L LAB CHEMISTRY METHOD 01/01/2025 6:28 AM [facility] Anion Gap 4 3 - 11 LAB CHEMISTRY METHOD 01/01/2025 6:28 AM [facility] Glucose 89 70 - 100 mg/dL LAB CHEMISTRY METHOD 01/01/2025 6:28 AM [facility] BUN 27(H) 5 - 25 mg/dL LAB CHEMISTRY METHOD 01/01/2025 6:28 AM [facility] Creatinine 0.62 0.50 - 1.10 mg/dL LAB CHEMISTRY METHOD 01/01/2025 6:28 AM [facility] eGFR 87 >=60 mL/min/1. 73m2 LAB CHEMISTRY METHOD 01/01/2025 6:28 AM [facility] Comment:Calculation based on the Chronic Kidney Disease Epidemiology Collaboration (CKD-EPI) equation refit without adjustment for race. BUN/Creatinine Ratio 43.5 LAB CHEMISTRY METHOD 01/01/2025 6:28 AM EDT [facility] Calcium 10.0 8.5 - 10.5 mg/dL LAB CHEMISTRY METHOD 01/01/2025 6:28 AM EDT [facility] Blood Venous blood specimen / Unknown Venipuncture / Unknown 01/01/2025 5:55 AM EDT 01/01/2025 6:04 AM EDT Estefany Phillips NP LAB BLOOD ORDERABLES Final Result Performing Organization Address [facility]/ZIP Co de Phone Number [facility] [address] [place] [address], [place] [phone] * Creatinine serum (12/29/2024 12:29 PM EDT) Creatinine 0.58 0.50 - 1.10 mg/dL LAB CHEMISTRY METHOD 12/29/2024 2:58 PM EDT [facility] eGFR 88 >=60 mL/min/1. 73m2 LAB CHEMISTRY METHOD 12/29/2024 2:58 PM EDT [facility] Comment:Calculation based on the Chronic Kidney Disease Epidemiology Collaboration (CKD-EPI) equation refit without adjustment for race. Blood Venous blood specimen / Unknown Venipuncture / Unknown 12/29/2024 12:29 PM EDT 12/29/2024 12:41 PM EDT us Bonnie Anne DO LAB BLOOD ORDERABLES Sailaja l Result [facility] [address] [place] [address], [place] [phone] * Lavender tube (12/29/2024 12:28 PM EDT) Only the most recent of3 resultswithin the time period is included. Extra Tube Hold for add-ons. 12/29/2024 2:01 PM EDT [facility] Comment:Auto resulted. Blood Venous blood specimen / Unknown 12/29/2024 12:28 PM EDT 12/29/2024 12:42 PM EDT us Bonnie Anne DO LAB BLOOD ORDERABLES Sailaja haney Result [facility] [address] [place] [address], [place] [phone] * (ABNORMAL) Comprehensive metabolic panel (12/24/2024 9:46 AM EDT) Only the most recent of2 resultswithin the time period is included. Sodium 137 133 - 145 mmol/L LAB CHEMISTRY METHOD 12/24/2024 10:32 AM [facility] Potassium 4.3 3.5 - 5.5 mmol/L LAB CHEMISTRY METHOD 12/24/2024 10:32 AM [facility] Chloride 105 96 - 110 mmol/L LAB CHEMISTRY METHOD 12/24/2024 10:32 AM [facility] CO2 25 21 - 32 mmol/L LAB CHEMISTRY METHOD 12/24/2024 10:32 AM [facility] Anion Gap 7 3 - 11 LAB CHEMISTRY METHOD 12/24/2024 10:32 AM [facility] Glucose 143(H) 70 - 100 mg/dL LAB CHEMISTRY METHOD 12/24/2024 10:32 AM [facility] BUN 30(H) 5 - 25 mg/dL LAB CHEMISTRY METHOD 12/24/2024 10:32 AM [facility] Creatinine 0.67 0.50 - 1.10 mg/dL LAB CHEMISTRY METHOD 12/24/2024 10:32 AM [facility] eGFR 85 >=60 mL/min/1. 73m2 LAB CHEMISTRY METHOD 12/24/2024 10:32 AM [facility] Comment:Calculation based on the Chronic Kidney Disease Epidemiology Collaboration (CKD-EPI) equation refit without adjustment for race. BUN/Creatinine Ratio 44.8 LAB CHEMISTRY METHOD 12/24/2024 10:32 AM [facility] Calcium 10.1 8.5 - 10.5 mg/dL LAB CHEMISTRY METHOD 12/24/2024 10:32 AM [facility] AST (SGOT) 25 10 - 42 unit/L LAB CHEMISTRY METHOD 12/24/2024 10:32 AM [facility] ALT (SGPT) 26 10 - 60 unit/L LAB CHEMISTRY METHOD 12/24/2024 10:32 AM [facility] Alkaline Phosphatase 76 42 - 121 unit/L LAB CHEMISTRY METHOD 12/24/2024 10:32 AM [facility] Total Protein 6.4 6.0 - 8.0 g/dL LAB CHEMISTRY METHOD 12/24/2024 10:32 AM [facility] Albumin 2.8(L) 3.2 - 5.0 g/dL LAB CHEMISTRY METHOD 12/24/2024 10:32 AM [facility] Total Bilirubin 0.4 0.0 - 1.4 mg/dL LAB CHEMISTRY METHOD 12/24/2024 10:32 AM [facility] Blood Venous blood specimen / Unknown Venipuncture / Unknown 12/24/2024 9:46 AM EDT 12/24/2024 9:54 AM EDT us Estefany Phillips NP LAB BLOOD ORDERABLES Final Result [facility] [address] [place] [address], * (ABNORMAL) Urinalysis with reflex microscopic and culture (12/23/2024 10:00 AM EDT) Only the most recent of2 resultswithin the time period is included. Specific [place] Urine 1.008 1.003 - 1.030 LAB URINALYSIS - AUTOMATED METHOD 12/23/2024 11:21 AM [facility] pH, Urine 6.5 5.0 - 8.0 pH LAB URINALYSIS - AUTOMATED METHOD 12/23/2024 11:21 AM [facility] Leukocytes, Urine Large(A) Negative LAB URINALYSIS - AUTOMATED METHOD 12/23/2024 11:21 AM [facility] Nitrite, Urine Positive(A) Negative LAB URINALYSIS - AUTOMATED METHOD 12/23/2024 11:21 AM [facility] Protein, Urine Trace <=Trace mg/dL LAB URINALYSIS - AUTOMATED METHOD 12/23/2024 11:21 AM [facility] Glucose, Urine Negative Negative mg/dL LAB URINALYSIS - AUTOMATED METHOD 12/23/2024 11:21 AM [facility] Ketones, Urine Negative Negative mg/dL LAB URINALYSIS - AUTOMATED METHOD 12/23/2024 11:21 AM [facility] Urobilinogen , Urine 0.2 0.2 - 1.0 mg/dL LAB URINALYSIS - AUTOMATED METHOD 12/23/2024 11:21 AM [facility] Bilirubin, Urine Negative Negative LAB URINALYSIS - AUTOMATED METHOD 12/23/2024 11:21 AM [facility] Blood, Urine Trace(A) Negative LAB URINALYSIS - AUTOMATED METHOD 12/23/2024 11:21 AM [facility] RBC, Urine 5.5(H) 0 - 4 /HPF LAB URINALYSIS - AUTOMATED METHOD 12/23/2024 11:21 AM [facility] WBC, Urine 349.0(H) 0 - 4 /HPF LAB URINALYSIS - AUTOMATED METHOD 12/23/2024 11:21 AM EDT [facility] Squamous Epithelial, Urine 4 0 - 60 /LPF LAB URINALYSIS - AUTOMATED METHOD 12/23/2024 11:21 AM EDT [facility] Bacteria, Urine Few(A) Negative /HPF LAB URINALYSIS - AUTOMATED METHOD 12/23/2024 11:21 AM EDT [facility] Hyaline Casts, Urine 0.0 0 - 3 /LPF LAB URINALYSIS - AUTOMATED METHOD 12/23/2024 11:21 AM EDT [facility] Urine Indwelling urinary catheter / Unknown Non-blood Collection / Unknown 12/23/2024 10:00 AM EDT 12/23/2024 10:31 AM EDT Bonnie A [employer] DO LAB URINE ORDERABLES Sailaja l Result Performing Organization Address City/[facility]/ZIP Co de Phone Number [facility] [address] [place] [address], [place] [phone] * James urine culture tube (12/23/2024 10:00 AM EDT) Only the most recent of2 resultswithin the time period is included. Extra Tube Hold for add-ons. 12/23/2024 12:01 PM EDT [facility] Comment:Auto resulted. Urine Indwelling urinary catheter / Unknown Non-blood Collection / Unknown 12/23/2024 10:00 AM EDT 12/23/2024 10:31 AM EDT us Bonnie A Dayana DO LAB URINE ORDERABLES Sailaja l Result Performing Organization Address City/[facility]/ZIP Co de Phone Number [facility] [address] [place] [address], [place] [phone] * (ABNORMAL) Culture urine (12/23/2024 10:00 AM EDT) Only the most recent of2 resultswithin the time period is included. Culture, Urine >100,000 CFU/mL Escherichia coli(A) RAO 12/26/2024 8:26 AM EDT [facility] Urine Indwelling urinary catheter / Unknown Non-blood Collection / Unknown 12/23/2024 10:00 AM EDT 12/23/2024 11:21 AM EDT Narrative Organism Antibiotic Method Susceptibility Escherichia coli Amoxicillin/Clavulanate RAO >=32 ug/ml: Resistant Escherichia coli Ampicillin/Sulbactam RAO >=32 ug/ml: Resistant Escherichia coli Piperacillin/Tazobactam RAO >=128 ug/ml: Resistant Escherichia coli Cefazolin (Urine) RAO >=32 ug/ml: Resistant Escherichia coli Cefoxitin RAO 8 ug/ml: Susceptible Escherichia coli Ceftazidime RAO <=0.5 ug/ml: Susceptible Escherichia coli Ceftriaxone RAO 1 ug/ml: Susceptible Escherichia coli Cefepime RAO 0.25 ug/ml: Susceptible Escherichia coli Meropenem RAO 1 ug/ml: Susceptible Escherichia coli Amikacin RAO 2 ug/ml: Susceptible Escherichia coli Gentamicin RAO <=1 ug/ml: Susceptible Escherichia coli Ciprofloxacin RAO >=4 ug/ml: Resistant Escherichia coli Levofloxacin RAO >=8 ug/ml: Resistant Escherichia coli Nitrofurantoin RAO <=16 ug/ml: Susceptible Escherichia coli Trimethoprim/Sulfamethoxazole RAO <=20 ug/ml: Susceptible us Bonnie Anne DO LAB MICROBIOLOGY - GENERA L ORDERABLES Final Result [facility] [address] [place] [address], * (ABNORMAL) CBC auto differential (12/20/2024 4:39 AM EDT) Only the most recent of4 resultswithin the time period is included. WBC 8.9 4.8 - 10.8 K/mcL LAB HEMETOLOGY METHOD 12/20/2024 5:22 AM EDT [facility] RBC 3.30(L) 3.80 - 4.80 M/mcL LAB HEMETOLOGY METHOD 12/20/2024 5:22 AM [facility] Hemoglobin 8.8(L) 11.5 - 16.0 g/dL LAB HEMETOLOGY METHOD 12/20/2024 5:22 AM [facility] Hematocrit 27.9(L) 35.0 - 47.0 % LAB HEMETOLOGY METHOD 12/20/2024 5:22 AM [facility] MCV 84.5 79.0 - 98.0 FL LAB HEMETOLOGY METHOD 12/20/2024 5:22 AM [facility] MCH 26.7(L) 27.0 - 32.0 pcg LAB HEMETOLOGY METHOD 12/20/2024 5:22 AM [facility] MCHC 31.5(L) 32.0 - 37.0 g/dL LAB HEMETOLOGY METHOD 12/20/2024 5:22 AM [facility] RDW 14.4 11.0 - 15.0 % LAB HEMETOLOGY METHOD 12/20/2024 5:22 AM [facility] Platelets 264 130 - 400 K/mcL LAB HEMETOLOGY METHOD 12/20/2024 5:22 AM [facility] MPV 10.3 7.0 - 11.0 FL LAB HEMETOLOGY METHOD 12/20/2024 5:22 AM [facility] NRBC 0.0 <1.0 % LAB HEMETOLOGY METHOD 12/20/2024 5:22 AM [facility] NRBC Absolute 0.00 <0.10 K/mcL LAB HEMETOLOGY METHOD 12/20/2024 5:22 AM [facility] Neutrophils Relative 63.4 % LAB HEMETOLOGY METHOD 12/20/2024 5:22 AM [facility] Lymphocytes Relative 19.8 % LAB HEMETOLOGY METHOD 12/20/2024 5:22 AM [facility] Monocytes Relative 10.8 % LAB HEMETOLOGY METHOD 12/20/2024 5:22 AM [facility] Eosinophils Relative 4.9 % LAB HEMETOLOGY METHOD 12/20/2024 5:22 AM [facility] Basophils Relative 0.7 % LAB HEMETOLOGY METHOD 12/20/2024 5:22 AM [facility] Immature Granulocytes Relative 0.4 % LAB HEMETOLOGY METHOD 12/20/2024 5:22 AM [facility] Neutrophils Absolute 5.64 1.50 - 7.00 K/mcL LAB HEMETOLOGY METHOD 12/20/2024 5:22 AM [facility] Lymphocytes Absolute 1.76 1.00 - 5.00 K/mcL LAB HEMETOLOGY METHOD 12/20/2024 5:22 AM [facility] Monocytes Absolute 0.96 0.20 - 1.00 K/mcL LAB HEMETOLOGY METHOD 12/20/2024 5:22 AM [facility] Eosinophils Absolute 0.44 0.00 - 0.50 K/mcL LAB HEMETOLOGY METHOD 12/20/2024 5:22 AM [facility] Basophils Absolute 0.06 0.00 - 0.20 K/mcL LAB HEMETOLOGY METHOD 12/20/2024 5:22 AM [facility] Immature Granulocytes Absolute 0.04(H) 0.00 - 0.03 K/mcL LAB HEMETOLOGY METHOD 12/20/2024 5:22 AM [facility] Blood Venous blood specimen / Unknown Venipuncture / Unknown 12/20/2024 4:39 AM EDT 12/20/2024 5:05 AM EDT Dinorah VELÁSQUEZ LAB BLOOD ORDERABLES Final Re sult [facility] [address] [place] [address], [place] [phone] * (ABNORMAL) Iron (12/20/2024 4:39 AM EDT) Iron 20(L) 40 - 150 mcg/dL LAB CHEMISTRY METHOD 12/21/2024 9:53 AM EDT [facility] Blood Venous blood specimen / Unknown Venipuncture / Unknown 12/20/2024 4:39 AM EDT 12/20/2024 5:05 AM EDT Jackie VELÁSQUEZ LAB BLOOD ORDERABLES Final R esult Performing Organization Address City/[facility]/ZIP Co de Phone Number [facility] [address] [place] [address], [place] [phone] * (ABNORMAL) Ferritin (12/20/2024 4:39 AM EDT) Pathologist [facility] Ferritin 478(H) 8 - 252 ng/mL LAB CHEMISTRY METHOD 12/21/2024 9:53 AM EDT [facility] Blood Venous blood specimen / Unknown Venipuncture / Unknown 12/20/2024 4:39 AM EDT 12/20/2024 5:05 AM EDT Jcakie VELÁSQUEZ LAB BLOOD ORDERABLES Final R esult Performing Organization Address City/[facility]/ZIP Co de Phone Number [facility] [address] [place] [address], [place] [phone] * SST tube (12/18/2024 7:05 AM EDT) Pathologist [facility] Extra Tube Hold for add-ons. 12/18/2024 9:01 AM EDT [facility] Comment:Auto resulted. Blood Venous blood specimen / Unknown 12/18/2024 7:05 AM EDT 12/18/2024 7:14 AM EDT us Sabino Brito MD LAB BLOOD ORDERABLES Final Resul t [facility] [address] [place] [address], [place] [phone] * XR Hip 2-3 Views Left (12/17/2024 11:15 AM EDT) Only the most recent of2 resultswithin the time period is included. Anatomical Region Laterality Modality Lower Extremities, Hip Left Radio Flu oroscopy 12/18/2024 9:02 PM EDT Impressions 12/18/2024 9:03 PM EDT FINDINGS/IMPRESSION: Fluoroscopic support provided in operating room without radiologist involvement. Total fluoroscopy time 190 seconds. Dose 26.49 mgy -------- FINAL REPORT -------- Dictated By: Taj Covarrubias Dictated Date: 12/18/2024 21:02 ET Assigned Physician: Taj Covarrubias Reviewed and Electronically Signed By: Taj Covarrubias Signed Date: 12/18/2024 21:03 ET Workstation ID: [id number] Transcribed By: Self Edit Transcribed Date: 12/18/2024 21:02 ET Narrative 12/18/2024 9:03 PM EDT XR HIP 2-3 VIEWS LEFT INDICATION: pain TECHNIQUE: XR HIP 2-3 VIEWS LEFT COMPARISON: No priors available. Procedure Note Taj Covarrubias MD - 12/18/2024 XR HIP 2-3 VIEWS LEFT INDICATION: pain TECHNIQUE: XR HIP 2-3 VIEWS LEFT COMPARISON: No priors available. IMPRESSION: FINDINGS/IMPRESSION: Fluoroscopic support provided in operating roomwithout radiologist involvement. Total fluoroscopy time 190 seconds.Dose 26.49 mgy -------- FINAL REPORT -------- Dictated By: Taj Covarrubias Dictated Date: 12/18/2024 21:02 ET Assigned Physician: Taj Covarrubias Reviewed and Electronically Signed By: Taj Covarrubias Signed Date: 12/18/2024 21:03 ET Workstation ID: [id number] Transcribed By: Self Edit Transcribed Date: 12/18/2024 21:02 ET us Cameron Brooks MD IMG XR PROCEDURES Final R esult * TH AN ENDOTRACHEAL(NO CHARGE) (12/17/2024 10:07 AM EDT) Poncho Matta CRNA - 12/17/2024 10:07 AM EDT Poncho Olivares CRNA 12/17/2024 10:08 AM General Information and Staff Patient location during procedure: OR Performed by: Poncho Olivares CRNA Authorized by: Arturo Cortez MD Intubation Airway not difficult Urgency: elective Final Airway Details Successful airway: ETT Cuffed: yes Successful intubation technique: direct laryngoscopy Endotracheal tube insertion site: oral Blade: Christian Blade size: #3 ETT size (mm): 7.0 Cormack-Lehane Classification: grade I - full view of glottis Placement verified by: chest auscultation, capnometry and palpation of cuff Cuff volume (mL): 7 Measured from: gums ETT to gums (cm): 21 Number of attempts at approach: 1Final airway type: endotracheal airway Indications and Patient Condition Indications for airway management: anesthesia and airway protection Spontaneous ventilation: present Sedation level: Yes Preoxygenated: yes Soft Tissue Damage: No Dentition Unchanged: Yes Patient position: reverse Trendelenburg Mask difficulty assessment: 2 - vent by mask + OA or adjuvant +/- NMBA us Arturo Cortez MD ANESTHESIA ORDERABLES Final Re sult * XR Chest 1 View (12/16/2024 3:36 PM EDT) Anatomical Region Laterality Modality Body Radiographic Amna ging 12/16/2024 3:52 PM EDT Impressions 12/16/2024 3:53 PM EDT No evidence of active pulmonary disease. -------- FINAL REPORT -------- Dictated By: Winston Mesa Dictated Date: 12/16/2024 15:52 ET Assigned Physician: Winston Mesa Reviewed and Electronically Signed By: Winston Mesa Signed Date: 12/16/2024 15:53 ET Workstation ID: [id number] Transcribed By: Self Edit Transcribed Date: 12/16/2024 15:52 ET Narrative 12/16/2024 3:53 PM EDT INDICATION: Fall with hip fracture FINDINGS: Single AP view of the chest obtained. No prior studies available for comparison. Lung escamilla are clear. Heart mildly enlarged. Bony structures demonstrate osteopenia and degenerative changes Procedure Note Winston Mesa MD - 12/16/2024 INDICATION: Fall with hip fracture FINDINGS: Single AP view of the chest obtained. No prior studies availablefor comparison. Lung escamilla are clear. Heart mildly enlarged. Bony structures demonstrate osteopenia and degenerative changes IMPRESSION: No evidence of active pulmonary disease. -------- FINAL REPORT -------- Dictated By: Winston Mesa Dictated Date: 12/16/2024 15:52 ET Assigned Physician: Winston Mesa Reviewed and Electronically Signed By: Winston Mesa Signed Date: 12/16/2024 15:53 ET Workstation ID: [id number] Transcribed By: Self Edit Transcribed Date: 12/16/2024 15:52 ET us Gerardo Escalera MD IMG XR PROCEDURES Final Res ult * XR Lumbar Spine 2-3 Views (12/16/2024 3:36 PM EDT) Anatomical Region Laterality Modality Spine, L-spine Radiographic Amna ging 12/16/2024 3:49 PM EDT Impressions 12/16/2024 3:51 PM EDT Osteopenia, scoliosis and degenerative changes. -------- FINAL REPORT -------- Dictated By: Winston Mesa Dictated Date: 12/16/2024 15:49 ET Assigned Physician: Winston Mesa Reviewed and Electronically Signed By: Winston Mesa Signed Date: 12/16/2024 15:51 ET Workstation ID: [id number] Transcribed By: Self Edit Transcribed Date: 12/16/2024 15:49 ET Narrative 12/16/2024 3:51 PM EDT INDICATION: Lower back pain FINDINGS: 3 views of the lumbar spine were obtained. No prior studies available for comparison. Osteopenia, degenerative and scoliotic changes. Scoliosis limits evaluation of the lateral view. Multilevel disc space narrowing. Mild diffuse aortic calcification. Procedure Note Winston Mesa MD - 12/16/2024 INDICATION: Lower back pain FINDINGS: 3 views of the lumbar spine were obtained. No prior studiesavailable for comparison. Osteopenia, degenerative and scoliotic changes. Scoliosis limitsevaluation of the lateral view. Multilevel disc space narrowing. Milddiffuse aortic calcification. IMPRESSION: Osteopenia, scoliosis and degenerative changes. -------- FINAL REPORT -------- Dictated By: Winston Mesa Dictated Date: 12/16/2024 15:49 ET Assigned Physician: Winston Mesa Reviewed and Electronically Signed By: Winston Mesa Signed Date: 12/16/2024 15:51 ET Workstation ID: [id number] Transcribed By: Self Edit Transcribed Date: 12/16/2024 15:49 ET Gerardo Escalera MD IMG XR PROCEDURES Final Res ult * APTT (12/16/2024 2:44 PM EDT) aPTT 33.3 24.1 - 39.3 sec LAB COAGULATION METHOD 12/16/2024 2:59 PM EDT [facility] Blood Venous blood specimen / Unknown Venipuncture / Unknown 12/16/2024 2:44 PM EDT 12/16/2024 2:48 PM EDT Gerardo Escalera MD LAB BLOOD ORDERABLES Final Result [facility] [address] [place] [address], * Protime-INR (12/16/2024 2:44 PM EDT) Protime 12.1 10.6 - 13.9 sec LAB COAGULATION METHOD 12/16/2024 2:59 PM EDT [facility] INR 1.0 LAB COAGULATION METHOD 12/16/2024 2:59 PM EDT [facility] Blood Venous blood specimen / Unknown Venipuncture / Unknown 12/16/2024 2:44 PM EDT 12/16/2024 2:48 PM EDT Gerardo Escalera MD LAB BLOOD ORDERABLES Final Result Performing Organization Address City/[facility]/ZIP Co de Phone Number [facility] [address] [place] [address], [place] [phone] * Type and screen (12/16/2024 2:44 PM EDT) ABO Group O 12/22/2024 2:06 PM EDT [facility] Rh Type Negative 12/22/2024 2:06 PM EDT [facility] Antibody Screen Negative 12/22/2024 2:06 PM EDT [facility] Blood Venous blood specimen / Unknown Venipuncture / Unknown 12/16/2024 2:44 PM EDT 12/16/2024 2:48 PM EDT Gerardo Escalera MD LAB BLOOD BANK TEST ORDERAB LES Final Result [facility] [address] [place] [address], [place] [phone] from Last 3 Months Insurance MEDICARE [facility] Advance Directives Documents on File Type Date Recorded Patient Gastroenterology Technician Expl anation Health Care Decision (hx) 11/19/2020 AD PINA DIRECTIVE Health Care Decision (hx) 11/19/2020 AD PINA DIRECTIVE Health Care Decision (hx) 11/19/2020 AD PINA DIRECTIVE Health Care Decision (hx) 11/19/2020 AD PINA DIRECTIVE Health Care Decision (hx) 11/19/2020 AD PINA DIRECTIVE Health Care Decision (hx) 11/19/2020 AD PINA DIRECTIVE Health Care Decision (hx) 11/19/2020 AD PINA DIRECTIVE Health Care Decision (hx) 11/19/2020 AD PINA DIRECTIVE * No CPR/Do Not Intubate (Latest Code Status on File) Date Activated Date Inactivated Comments 12/19/2024 3:00 PM 01/03/2025 3:[address] [facility] was ascertained in the following way: Code status discussion: discussion with healthcare wire rope sales representative To update the patient's code status, place a code status order. Do not modify or discontinue any currently active code status orders. * No CPR/Do Not Intubate Date Activated Date Inactivated Comments 12/16/2024 9:45 PM 12/19/2024 2:[address] [facility] was ascertained in the following way: Code status discussion: discussion with patient To update the patient's code status, place a code status order. Do not modify or discontinue any currently active code status orders. * Full Code - Default Date Activated Date Inactivated Comments 12/16/2024 5:16 PM 12/16/2024 9:45 PM This is orde r is used when code status has not been discussed with the patient, or code status is otherwise unknown/unconfirmed To update the patient's code status, place a code status order. Do not modify or discontinue any currently active code status orders. Healthcare Agents on File Name Relationship Healthcare Agent [facility] Communication Annabella Machado Daughter First Alternate Health Care Agent Bayron Machado Son Second Alternate Health Car e Agent Care Teams Sheeter Waxer Operator Relationship Specialty Start Date End Date Arian Waldron MD [address] [place] [id number] PCP - General Rubber Insulator 02/06/20
--- OUTSIDE RECORDS SUMMARY | 2025-03-08 15:42 | XMS_ITS | Clinical Summary ---
Author Organization [facility] Address [address] [place] [address] Care Team Providers Care Clinical Data Management Director Name Role Phone Arian Ashford MD Primary Care Provider Allergies Active Allergy Reactions Criticality Noted Date [...] age to complete this topic Care Teams Clinical Data Management Director Relationship Specialty Start Date End Date Arian Ashford MD [address] [place] [address] PCP - General Perforator Operator 02/06/20
== END 2025-03-08 15:28 | disposition home or self-care (01) ==
PROVIDERS: Visit Provider Orthopaedic Surgery
DX: M17.11 Unilateral primary osteoarthritis, right knee (principal)
CPT/HCPCS: 20610; 99213

== ENCOUNTER → 2025-03-08 15:14 | Outpatient (BNVA) | payer MEDICARE, OTHER, SELFPAY | PROVIDERS: Visit Provider Orthopaedic Surgery | DX: M17.11 Unilateral primary osteoarthritis, right knee (principal) | CPT/HCPCS: 20610; 99212; J2003; J7318 ==

== ENCOUNTER 2025-06-12 12:34 | Outpatient (AMB) | payer MEDICARE, OTHER, SELFPAY ==
--- NOTE | 2025-06-12 12:46 | MHC.OFFVIS ---
Vital Signs 06/12/25 12:51 Height 5 ft 3 in Weight 195 lb BMI 34.5 Intake Visit Reasons: Right knee pain Intake Note: Marie is an 84 year old female who presents with complaints of right knee pain. She describes her pain as sharp in nature. She is not able to get cortisone injections because of her glaucoma. She has had Durolane injections which have given her fairly good relief. She wishes to hold off on right total knee replacement surgery for as long as possible. She has failed the last 3 months of conservative treatment which has included Tylenol, anti-inflammatory medicines, a home exercise program and physical therapy exercises. At this point her right knee pain is interfering with her activities of daily living and her ability to sleep well through the night. Allergies nitrofurantoin Allergy (Mild, Verified 06/12/25 12:51) itchy sulfamethoxazole (From Bactrim) Allergy (Mild, Verified 06/12/25 12:51) itchy tramadol (From Ultram) Allergy (Mild, Verified 06/12/25 12:51) itchy trimethoprim (From Bactrim) Allergy (Mild, Verified 06/12/25 12:51) itchy Medication List - Last Reconciled 06/12/25 by Apollo Lucio MD amoxicillin 2,000 mg (4 x 500 mg) PO ONCE atenolol 100 mg PO QAM diclofenac sodium ER 100 mg PO DAILY PRN dorzolamide 2% 1 drp ophthalmic (eye) TID gabapentin 400 mg PO DAILY ketorolac 0.5% drps ophthalmic (eye) lidocaine 4% (Lido Porfirio) 1 patch topical QID PRN lidocaine HCl 4% (Aspercreme (lidocaine HCl)) 1 appl topical QID PRN losartan 50 mg PO DAILY ofloxacin 0.3% drps ophthalmic (eye) ondansetron 4 mg PO Q8-12H PRN prednisolone acetate 1% drps ophthalmic (eye) tirzepatide (weight loss) (Zepbound) 7.5 mg subcut QWEEK PFSH Medical History (Updated 02/14/25 @ 10:25 by Apollo Lucio MD) Thoracic aneurysm without mention of rupture Pinched nerve Arthritis HTN (hypertension) Vertigo Surgical History (Updated 06/12/25 @ 12:48 by Cookie Venegas Kevon) Hx of eye surgery 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 Family History Mother Diabetes Hypertension Father Leukemia Son Prostate cancer Social History Household Members: None Housing: Condominium Alcohol intake: never Patient Tobacco Use Status: Never used Tobacco Current occupational status: retired Physical Exam Vital Signs: BMI result Body Mass Index 34.5 Const Other: Well-nourished well-developed very friendly female awake alert and oriented x3 in no acute distress Extrem Other: Right knee examination shows a minimal effusion, palpable crepitus with range of motion, pain with range of motion, no instability Results Reviewed Results Reviewed: X-rays of the patient's right knee taken previously show joint space narrowing, subchondral sclerosis, no acute bony abnormalities Assessment & Plan Assessment & Plan (1) Right knee pain: Code(s): M25.561 - Pain in right knee Category: Medical (2) Osteoarthritis of right knee: Code(s): M17.11 - Unilateral primary osteoarthritis, right knee Category: Medical Plan Ms. Machado presents with right knee pain due to osteoarthritis. I had a lengthy discussion with the patient regarding the treatment options. She wishes to hold off on right total knee replacement surgery if at all possible. I agree with this plan. I will see if the patient's insurance company will cover a viscosupplementation injection, such as Durolane, for her right knee. I will see her back once the injection is approved. Feel free to call me at any time should questions regarding her orthopedic management arise. I spent 22 minutes in reviewing the patient's records and imaging studies, seeing the patient and documenting in the medical record. Medications: New amoxicillin Take four caps (2,000 mg) one hour before any dental work 2,000 mg (4 x 500 mg) PO ONCE 20 caps 2RF Coding Level of Care Code Est Pt Level 3 (73324) Complex EM visit Add On G2211 Diagnoses Right knee pain M25.561 Osteoarthritis of right knee M17.11
[2025-06-12 12:51] VITALS: BMI 34.5
== END 2025-06-12 13:06 | disposition home or self-care (01) ==
LOC: HO.HOS 12:35
PROVIDERS: Visit Provider Orthopaedic Surgery
DX: M25.561 Pain in right knee (principal); M17.11 Unilateral primary osteoarthritis, right knee
CPT/HCPCS: 99213; G2211

== ENCOUNTER → 2025-06-12 12:34 | Outpatient (BNVA) | payer MEDICARE, OTHER, SELFPAY | PROVIDERS: Visit Provider Orthopaedic Surgery | DX: M25.561 Pain in right knee (principal); M17.11 Unilateral primary osteoarthritis, right knee | CPT/HCPCS: 99212 ==